=== PATIENT | male | born 1950 | race Caucasian/White ===

== ENCOUNTER 2021-10-14 16:24 | Outpatient (REF) | payer MEDICARE, SELFPAY ==
[2021-10-14 19:36] LABS: ALT 32 U/L (16-63); AST 16 U/L (15-37); Alkaline Phosphatase 58 U/L (46-116); Anion Gap 9.3 mmol/L (3-11); BUN 13 mg/dL (7-18); Bilirubin, Total 0.4 mg/dL (0.2-1.0); CO2 28.7 mmol/L (21.0-32.0); CREATININE 0.9 mg/dL (0.70-1.30); Calcium 8.8 mg/dL (8.5-10.1); Calculated LDL 127 mg/dL (<100); Chloride 101 mmol/L (98-107); Cholesterol 188 mg/dL (<200); Glucose 91 mg/dL (74-106); HDL Cholesterol 43 mg/dL (40-60); Potassium 4.2 mmol/L (3.5-5.1); Sodium 139 mmol/L (136-145); Total Protein 7.4 g/dL (6.4-8.2); Triglyceride 91 mg/dL (<150)
[2021-10-14 20:29] LABS: Hemoglobin A1C 5.2 % (<5.7)
== END 2021-10-14 16:25 | disposition home or self-care (01) ==
LOC: NCHCN 16:24
PROVIDERS: Visit Provider Nurse Practitioner Family
DX: E78.2 Mixed hyperlipidemia (principal)
CPT/HCPCS: 80053; 80061; 83036

== ENCOUNTER 2022-11-07 09:26 | Outpatient (REF) | payer MEDICARE, SELFPAY ==
--- OUTSIDE RECORDS SUMMARY | 2022-11-07 09:32 | XMS_ITS | Continuity of Care Document ---
Author Name Unknown Organization [facility] Address [address] [place] [address] Encounter LTTL_[place] FIN NBR [id number] Date(s): 09/06/22 - 09/06/22 [facility] [address] [place], [place] [address] Encounter Diagnosis Nuclear age-related cataract, right eye(Discharge Diagnosis) - 09/05/22 Cortical age-related cataract, right eye(Discharge Diagnosis) - 09/05/22 Discharge Disposition: Home f/u External Provider Attending Physician: Ramses Dickinson MD Admitting Physician: Ramses Dickinson MD Referring Physician: Ramses Dickinson MD Allergies, Adverse Reactions, Alerts Substance Reaction Severity Status penicillin Vomiting Mild Active Functional Status 09/06/22 Recent Travel History No recent travel Other exposure to Infectious Disease Non e Medications glucosamine/chondroitin/methylsulfonylmethane 1 tab, Oral, Daily, 0 Refill(s) Start Date: 08/18/22 Status: Ordered prednisolone/moxifloxacin/nepafenac 1%-0.5%-0.1% ophthalmic suspension 1 drops, OPHTH, As Directed, 0 Refill(s) Start Date: 09/06/22 Status: Ordered Vitamin C 1 tab, Oral, Daily, 0 Refill(s) Start Date: 08/18/22 Status: Ordered Vitamin D3 1 tab, Oral, Daily, 0 Refill(s) Start Date: 08/18/22 Status: Ordered Problem List Condition Confirmation Course Effective Dates Status H ealt Status Informant Asthma Confirmed Active HLD - Hyperlipidemia Confirmed Active HTN - Hypertension Confirmed Active Lumbar spinal stenosis Confirmed Active Myelopathy due to spinal cord compression Confirmed Active Procedures Procedure Date Related Diagnosis Body Site Status Cataract Extraction with IOL (Right) 1 09/06/22 Completed Cataract Extraction with IOL (Left) 2 08/23/22 Completed Knee joint operation Comp leted Operation on neck Complet ed Operation on shoulder joint Completed Spinal operation 3 Comple ria 1auto-populated from documented surgical case 2auto-populated from documented surgical case 3back surgery x 3 Vital Signs Most recent to oldest [Reference Range]: 1 2 3 Temperature Temporal Artery [36-38 Deg C] 37.1 Deg C (09/06/22 8:54 AM) 37.0 Deg C (09/06/22 7:30 AM) Peripheral Pulse Rate [60-100 bpm] 75 bpm (09/06/22 9:07 AM) 84 bpm (09/06/22 9:00 AM) 79 bpm (09/06/22 8:57 AM) Respiratory Rate [12-24 br/min] 16 br/min (09/06/22 7:30 AM) Blood Pressure [90-140/60-90 mmHg] 123/69mmHg (09/06/22 9:07 AM) 124/78mmHg (09/06/22 9:00 AM) 129/76mmHg (09/06/22 8:57 AM) Mean Arterial Pressure, Cuff [65-140 mmHg] 87 mmHg (09/06/22 9:07 AM) 93 mmHg (09/06/22 9:00 AM) 94 mmHg (09/06/22 8:57 AM) Mean Arterial Pressure Cuff 84 mmHg (09/06/22 9:07 AM) 92 mmHg (09/06/22 9:00 AM) 91 mmHg (09/06/22 8:57 AM) Weight 90.000 kg (09/04/22 2:10 PM) Weight Dosing 90.000 kg (09/04/22 2:10 PM) Height 168.000 cm (09/04/22 2:10 PM) Height/Length Dosing 168.000 cm (09/04/22 2:10 PM) Social History Social History Type Response Tobacco Never tobacco user T obacco Use:. Sex Implantable Device List Procedure Provider Procedure Date Device Type Site Extracapsular cataract remov al with insertion of intraocular lens prosthesis (1 stage procedure), manual or mechanical technique (eg, irrigation and aspiration or phacoemulsification); without endoscopic cyclophotocoagulation Ramses Dickinson MD 09/06/22 Non Biological Eye R Device Identifier Serial Number Lot or Batch Number Manufacturing Date Expiration Date Distinct Identification Code MRI Safety Implantable Status Assigning Authority Unknown [id number] Unknown Unknown 03/23/25 Unknown Unknown Active Unknown Procedure Provider Procedure Date Device Type Site Extracapsular cataract remov al with insertion of intraocular lens prosthesis (1 stage procedure), manual or mechanical technique (eg, irrigation and aspiration or phacoemulsification); without endoscopic cyclophotocoagulation Ramses Dickinson MD 08/23/22 Non Biological Eye L Device Identifier Serial Number Lot or Batch Number Manufacturing Date Expiration Date Distinct Identification Code MRI Safety Implantable Status Assigning Authority Unknown [id number] Unknown Unknown 03/31/25 Unknown Unknown Active Unknown
--- OUTSIDE RECORDS SUMMARY | 2022-11-07 09:32 | XMS_ITS | Continuity of Care Document ---
Author Name Unknown Organization [facility] Address [address] [place] [address] Encounter LTTL_[place] FIN NBR [id number] Date(s): 08/23/22 - 08/23/22 [facility] [address] [place], [place] [address] Encounter Diagnosis Nuclear age-related cataract, left eye(Discharge Diagnosis) - 08/22/22 Cortical age-related cataract, left eye(Discharge Diagnosis) - 08/22/22 Discharge Disposition: Home or Self Care Attending Physician: Ramses Dickinson MD Admitting Physician: Ramses Dickinson MD Referring Physician: Ramses Dickinson MD Allergies, Adverse Reactions, Alerts Substance Reaction Severity Status penicillin Vomiting Mild Active Functional Status 08/23/22 ADLs Independent Family Member Travel History No recent t ravel Recent Travel History No recent travel Other exposure to Infectious Disease Non e Medications glucosamine/chondroitin/methylsulfonylmethane 1 tab, Oral, Daily, 0 Refill(s) Start Date: 08/18/22 Status: Ordered Vitamin C 1 tab, Oral, [...] Body Site Status Cataract Extraction with IOL (Left) 1 08/23/22 Completed Knee joint operation Comp leted Operation on neck Complet ed Operation on shoulder joint Completed Spinal operation 2 Comple ria 1auto-populated from documented surgical case 2back surgery x 3 Vital Signs Most recent to oldest [Reference Range]: 1 2 Temperature Temporal Artery [36-38 Deg C ] 37.0 Deg C (08/23/22 7:41 AM) Peripheral Pulse Rate [60-100 bpm] 77 bp m (08/23/22 10:15 AM) 75 bpm (08/23/22 9:59 AM) Heart Rate Monitored [60-100 bpm] 84 bpm (08/23/22 7:41 AM) Respiratory Rate [12-24 br/min] 18 br/mi n (08/23/22 7:41 AM) Blood Pressure [90-140/60-90 mmHg] 123/8 8mmHg (08/23/22 9:59 AM) 153/92mmHg *HI* (08/23/22 7:41 AM) Mean Arterial Pressure, Cuff [65-140 mmH g] 100 mmHg (08/23/22 9:59 AM) Mean Arterial Pressure Cuff 98 mmHg (08/23/22 9:59 AM) Weight 89.360 kg (08/18/22 11:07 AM) Weight Dosing 89.360 kg (08/18/22 11:07 AM) Height 167.640 cm (08/18/22 11:07 AM) Height/Length Dosing 167.640 cm (08/18/22 11:07 AM) Social History Social History Type Response Tobacco [...] MRI Safety Implantable Status Assigning Authority Unknown [id number] Unknown Unknown 03/31/25 Unknown Unknown Active Unknown History and physical note * Event Display: History and Physical
[2022-11-07 20:08] LABS: ALT 23 U/L (16-63); AST 16 U/L (15-37); Albumin 4.1 g/dL (3.4-5.0); Alkaline Phosphatase 59 U/L (46-116); Anion Gap 7.3 mmol/L (3-11); BUN 13 mg/dL (7-18); Bilirubin, Total 0.4 mg/dL (0.2-1.0); CO2 27.7 mmol/L (21.0-32.0); CREATININE 0.9 mg/dL (0.70-1.30); Calcium 9.2 mg/dL (8.5-10.1); Calculated LDL 216 mg/dL (<100); Chloride 103 mmol/L (98-107); Cholesterol 283 mg/dL (<200); Estimated GFR 90.18 (mL/min/1.73m2); Glucose 92 mg/dL (74-106); HDL Cholesterol 45 mg/dL (40-60); Potassium 3.9 mmol/L (3.5-5.1); Sodium 138 mmol/L (136-145); Total Protein 7.9 g/dL (6.4-8.2); Triglyceride 111 mg/dL (<150)
== END 2022-11-07 09:27 | disposition home or self-care (01) ==
LOC: NCHCN 09:26
PROVIDERS: PCP Nurse Practitioner Family; Visit Provider Nurse Practitioner Family
DX: E78.2 Mixed hyperlipidemia (principal)
CPT/HCPCS: 80053; 80061

== ENCOUNTER 2023-05-09 20:12 | Outpatient (REF) | payer MEDICARE, SELFPAY ==
[2023-05-09 22:24] LABS: ALT 34 U/L (16-63); AST 22 U/L (15-37); Albumin 4.1 g/dL (3.4-5.0); Alkaline Phosphatase 60 U/L (46-116); Anion Gap 8.4 mmol/L (3-11); BUN 14 mg/dL (7-18); Bilirubin, Total 0.5 mg/dL (0.2-1.0); CO2 25.6 mmol/L (21.0-32.0); Calcium 9.5 mg/dL (8.5-10.1); Calculated LDL 133 mg/dL (<100); Chloride 101 mmol/L (98-107); Cholesterol 198 mg/dL (<200); Estimated GFR 78.98 (mL/min/1.73m2); Glucose 97 mg/dL (74-106); HDL Cholesterol 42 mg/dL (40-60); Sodium 135 mmol/L (136-145); Triglyceride 115 mg/dL (<150)
== END 2023-05-09 20:13 | disposition home or self-care (01) ==
LOC: NCHCN 20:12
PROVIDERS: PCP Nurse Practitioner Family; Visit Provider Nurse Practitioner Family
DX: E78.2 Mixed hyperlipidemia (principal)
CPT/HCPCS: 80053; 80061

== ENCOUNTER → 2023-10-03 01:20 | Outpatient (CLI) | payer MEDICARE, BC, SELFPAY ==
--- NOTE | 2023-10-03 | DI.RAD_ITS ---
Exam(s) XR KNEE RT 3V AP,LAT,REJI EXAM: XR KNEE RT 3V AP,LAT,REJI CLINICAL HISTORY: RT KNEE PAIN, M25.561. TECHNIQUE: 2D digital imaging was performed. Three images were obtained. AP, lateral and PA tunnel views were obtained. COMPARISON: CR Knee R from 07/22/2019 FINDINGS: BONES: There are stable post operative changes of a right total knee replacement present. No fractur e or dislocation. There are enthesophytes at the anterior patella. JOINTS: The orthopedic hardware is in good position. There is mild lucency seen around the anterior aspect of the tibial component on the lateral view. This was not present on the prior examination. There is a small joint effusion. SOFT TISSUE: Normal. IMPRESSION: 1. Status post right total knee replacement. New lucency seen around the anterior aspect of the tibi al component of the prosthesis. 2. Small joint effusion. DATA REPOSITORY: RADIATION DOSE DELIVERED:
== END ==
PROVIDERS: PCP Nurse Practitioner Family; Visit Provider Nurse Practitioner Family
DX: Z47.1 Aftercare following joint replacement surgery (principal); Z96.651 Presence of right artificial knee joint
CPT/HCPCS: 73562

== ENCOUNTER 2023-11-19 15:25 | Outpatient (CLI) | payer MEDICARE, BC, SELFPAY ==
--- NOTE | 2023-11-19 14:00 | DI.RAD_ITS ---
Exam(s) XR KNEE LT 4V AP,LAT,REJI,PAT EXAM: XR KNEE LT 4V AP,LAT,REJI,PAT CLINICAL HISTORY: f/u L kknee. TECHNIQUE: 2D digital imaging was performed of the left knee. Four images were obtained. Merchant, AP, lateral and PA tunnel views were obtained. COMPARISON: No priors for comparison. FINDINGS: BONES: No acute fracture is present. No bony destructive lesion is seen. There is an enthesophyte at the superior patella. JOINTS: There is moderate narrowing of the medial femoral tibial joint. Calcification is seen in the medial femoral tibial joint consistent with chondrocalcinosis. There osteophytes in all 3 joint com partments. There is a small joint effusion. No loose body. SOFT TISSUE: Normal. IMPRESSION: Moderate arthrosis of the left knee. Small joint effusion. DATA REPOSITORY: RADIATION DOSE DELIVERED:
== END 2023-11-19 15:26 | disposition home or self-care (01) ==
LOC: DIORS 15:25
PROVIDERS: PCP Nurse Practitioner Family; Referring Provider Nurse Practitioner Family; Visit Provider Student in an Organized Health Care Education/Training Program
DX: M17.12 Unilateral primary osteoarthritis, left knee (principal); Z96.651 Presence of right artificial knee joint; T84.84XA Pain due to internal orthopedic prosthetic devices, implants and grafts, initial encounter; T84.032A Mechanical loosening of internal right knee prosthetic joint, initial encounter
CPT/HCPCS: 99204; 73564

== ENCOUNTER → 2023-12-19 03:48 | Outpatient (CLI) | payer MEDICARE, BC, SELFPAY ==
--- NOTE | 2023-12-19 07:30 | DI.NM_ITS ---
Exam(s) NM BONE SCAN 3 PHASE EXAM: NM BONE SCAN 3 PHASE CLINICAL HISTORY: PAIN, ?LOOSENING prosthesis,t84.032a,. TECHNIQUE: Injected Dose: 26.8 mCi Tc-99m MDP COMPARISON: CR XR KNEE RT 3V AP,LAT,REJI from 10/03/2023 CR XR KNEE LT 4V AP,LAT,REJI,PAT from 11/19/2023 FINDINGS: Perfusion: Mild increased uptake lateral to both left and right aspects of the distal femoral component of the r ight knee prosthesis. Blood Pool: There is focal uptake seen in the medial compartment of the left knee consistent with degenerative ch eric. This persists on delayed images. There is also evident on plain films. There is some increased uptake seen subjacent to both sides of the tibial component of the prosthesis . There is no prominent abnormal uptake related to the femoral component. Delayed: There is persistent increased uptake in the medial compartment of the left knee consistent with degen erative change. There is some mild increased uptake seen subjacent to the tibial component, more so laterally than me dially. Multilevel uptake in lumbar spine probably degenerative. There is no abnormal uptake in the pelvis a nd hips nor in the femurs. Increased uptake seen in the great toe metatarsophalangeal joint of the r ight foot. Also some uptake in the midfoot. There is increased focal uptake seen in the lower left medial calf most probably related to the tibia at this level. This is of questionable significance. No abnormal uptake in the hips and pelvis nor in the sacrum. No abnormal uptake in the skull. IMPRESSION: 1. Uptake in the medial compartment of the left knee consistent with significant osteoarthritic degen erative changes. 2. Some uptake is seen subjacent to the tibial component of the right knee prosthesis. This may rep resent some loosening but correlation from time of surgery recommended. 3. Other foci of uptake as described above which most probably degenerative. DATA REPOSITORY:
--- NOTE | 2023-12-19 07:30 | DI.CT_ITS ---
Exam(s) CT LOWER EXTREMITY RT WO EXAM: CT LOWER EXTREMITY RT WO CLINICAL HISTORY: PAIN, ?LOOSENING of prosthesis,painful total knee replacement,T84.84xa,. TECHNIQUE: Imaging Protocol: Axial computed tomography images with coronal and sagittal reformatted images were created and reviewed. CONTRAST MATERIAL: Intravenous: Omnipaque 350 Contrast volume:structured data in ml Contrast route:IV - COMPARISON: CR XR KNEE RT 3V AP,LAT,REJI from 10/03/2023 CR XR KNEE LT 4V AP,LAT,REJI,PAT from 11/19/2023 NM NM BONE SCAN 3 PHASE from 12/19/2023 FINDINGS: Bones: There is no evidence of fracture. The alignment of the total knee prosthesis appears normal. There is thin lucency seen adjacent to the the tibial component of the prosthesis, greater anteriorl y, consistent with loosening. No abnormal lucencies visible at the femoral or patellar components of the prosthesis however there is significant artifact. No cellulitic or osteomyelitic changes are identified. No lytic or sclerotic lesions are identified. A small joint effusion is seen. Soft Tissues: Normal. IMPRESSION: Findings suspicious for loosening of the the tibial component. RADIATION DOSE DELIVERED: 438.55mGy.cm Total DLP DATA REPOSITORY: All CT scans at this facility are submitted to the National Radiology Data Registry (NRDR) Dose Index Registry (DIR) with the [employer] (ACR). RADIATION OPTIMIZATION: All CT scans at this facility use at least one of these dose optimization te chniques: automated exposure control; mA and/or kV adjustment per patient size (includes targeted exa ms where dose is matched to clinical indication); or iterative reconstruction.
== END ==
PROVIDERS: PCP Nurse Practitioner Family; Visit Provider Student in an Organized Health Care Education/Training Program
DX: T84.032A Mechanical loosening of internal right knee prosthetic joint, initial encounter (principal); T84.84XA Pain due to internal orthopedic prosthetic devices, implants and grafts, initial encounter; Z96.651 Presence of right artificial knee joint
CPT/HCPCS: 73700; 78315

== ENCOUNTER 2023-12-31 04:45 | Outpatient (CLI) | payer MEDICARE, BC, SELFPAY ==
[2023-12-31 14:25] LABS: HCT 43.7 % (40.0-50.0); HGB 14.9 g/dL (13.5-17.5); MCH 31.5 pg (27.0-33.0); MCHC 34.1 % (32.0-36.0); MCV 92 fL (80-95); MPV 9.1 fL (8.0-11.0); Platelet Count 231 10^3/uL (130-400); RBC 4.73 10^6/uL (4.36-5.78); RDW 12.5 % (11.8-14.1); RDW-SD 42.7 fL; WBC 8.12 10^3/uL (4.4-10.8)
[2023-12-31 15:05] LABS: ESR 10 mm/hr (0-20)
[2023-12-31 15:36] LABS: Anion Gap 9.3 mmol/L (3-11); BUN 19 mg/dL (7-18); CO2 28.7 mmol/L (21.0-32.0); Calcium 9.3 mg/dL (8.5-10.1); Chloride 104 mmol/L (98-107); Estimated GFR 78.98 (mL/min/1.73m2); Glucose 88 mg/dL (74-106); Potassium 4.3 mmol/L (3.5-5.1); Sodium 142 mmol/L (136-145)
[2023-12-31 15:42] LABS: C-Reactive Protein < 0.50 mg/dL (<or=0.5)
== END 2023-12-31 04:46 | disposition home or self-care (01) ==
LOC: LBO 04:45
PROVIDERS: PCP Nurse Practitioner Family; Visit Provider Student in an Organized Health Care Education/Training Program
DX: T84.032A Mechanical loosening of internal right knee prosthetic joint, initial encounter (principal); T84.84XA Pain due to internal orthopedic prosthetic devices, implants and grafts, initial encounter; Z96.651 Presence of right artificial knee joint; Z01.818 Encounter for other preprocedural examination
CPT/HCPCS: 36415; 80048; 85027; 85652; 86140

== ENCOUNTER 2024-01-08 08:10 | Inpatient (IN) | payer MEDICARE, BC, SELFPAY ==
[2024-01-08] VITALS (17 sets, daily range): BP systolic 74–151; BP diastolic 46–88; PULSE 69–80; RESP 14–19; TEMP 36.6–37.3; O2SAT 94–99; BMI 29.8
[2024-01-08] MEDS: Gabapentin 300 MG CAP PO ×2 (09:06→20:56)
[2024-01-08] MEDS: Celecoxib 200 MG CAP 400 MG PO (09:06)
[2024-01-08] MEDS: Acetaminophen 500 MG TAB 1000 MG PO ×3 (09:07→22:36)
[2024-01-08] MEDS: Lactated Ringers 1,000 ML 80 ML IV ×2 (09:09→16:02)
--- NOTE | 2024-01-08 10:19 | W.ANESPRE ---
General Info Date of Service Date Performed: 01/08/24 Height: 5 ft 7 in Weight: 86.4 kg Body Mass Index (BMI): 29.8 Surgical Procedure: Operation Date: 01/08/24 10:55 Proposed Procedure Side Surgeon p Knee Total Revision, ATTUNE Right Tre Dodge MD s Knee Injection Left Tre Dodge MD Actual Procedure Side Surgeon p Knee Total Revision, ATTUNE Right Tre Dodge MD s Knee Injection Left Tre Dodge MD Meds Allergies and Home Medications Allergies Allergy/AdvReac Type Severity Reaction Status Date / Time Penicillins AdvReac vomiting Verified 01/08/24 08:40 birch trees Allergy rash Uncoded 01/08/24 08:40 cats Allergy rash Uncoded 01/08/24 08:40 Home Medication Medication Instructions Recorded acetaminophen 500 mg capsule 500 mg PO Q6H PRN 10/03/23 ascorbate calcium (vitamin C) 500 1 g PO DAILY 10/03/23 mg tablet cholecalciferol (vitamin D3) 25 25 mcg PO DAILY 10/03/23 mcg (1,000 unit) capsule glucosamine 375 by-[id number]-[id number] 1 tab PO DAILY 10/03/23 no1 500 mg-C 15 mg-maxi 0.5 mg tablet Current Visit Medications: Current Medications Generic Name Dose Route Start Last Admin Trade Name Aries PRN Reason Stop Dose Admin Acetaminophen 1,000 mg 01/08/24 06:00 01/08/24 09:07 Acetaminophen 500 Mg Tab PO 01/08/24 23:59 1,000 mg PREOP JENS Administration Celecoxib 400 mg 01/08/24 06:00 01/08/24 09:06 Celecoxib 200 Mg Cap PO 01/08/24 23:59 400 mg PREOP JENS Administration Gabapentin 300 mg 01/08/24 06:00 01/08/24 09:06 Gabapentin 300 Mg Cap PO 01/08/24 23:59 300 mg PREOP JENS Administration Ringer's Solution 1,000 mls @ 80 mls/hr 01/08/24 06:00 01/08/24 09:09 IV 01/08/24 23:59 80 mls/hr INFUSION JENS Administration Cefazolin Sodium/Dextrose 2 gm in 50 mls @ 100 mls/hr 01/08/24 06:00 Ancef Duplex IVPB 01/08/24 23:59 PREOP JENS Tranexamic Acid/Sodium Chloride 1,000 mg in 100 mls @ 600 mls/hr 01/08/24 06:00 IVPB 01/08/24 23:59 PREOP JENS IV Miscellaneous Supplies 1 each 01/08/24 06:00 Iv Access IV 01/08/24 23:59 DIRECTED JENS Sodium Chloride 0 ml 01/08/24 06:00 Normal Saline Flush 10 Ml Syr IV 01/08/24 23:59 PRN PRN Sodium Chloride 0 ml 01/08/24 06:00 Normal Saline 10 Ml Vial IJ 01/08/24 23:59 DIRECTED PRN Sterile Water 0 ml 01/08/24 06:00 Water,Injection,Sterile 10 Ml Vial IJ 01/08/24 23:59 DIRECTED PRN PFSH Active Problems Active Problems: Problem Status Onset Code 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 Arthritis of left knee M17.12 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 Mild intermittent asthma J45.20 Medical History Medical History History of ankle fracture Lumbar spinal stenosis Allergic rhinitis Spinal cord compression Obesity Mixed hyperlipidemia Surgical History Surgical History History of bilateral cataract extraction History of total right knee replacement 2016 Tobacco Smoking/Tobacco Use Status: Never Alcohol Alcohol Intake: current Alcohol intake frequency: a few times a month Substance Use Substance use: Never Substance use type: does not use Vital Signs and Lab Results Vital Signs Most Recent Vital Signs in EMR: Most Recent Vital Signs Temp Pulse Resp BP Pulse Ox 36.6 C 73 16 151/85 H 99 01/08/24 08:31 01/08/24 08:31 01/08/24 08:31 01/08/24 08:54 01/08/24 08:31 Lab Results Blood Type / Crossmatch: No Data to Display Complete Blood Count: White Blood Count 8.12 10^3/uL (4.4-10.8) 12/31/23 14:10 Red Blood Count 4.73 10^6/uL (4.36-5.78) 12/31/23 14:10 Hemoglobin 14.9 g/dL (13.5-17.5) 12/31/23 14:10 Hematocrit 43.7 % (40.0-50.0) 12/31/23 14:10 Platelet Count 231 10^3/uL (130-400) 12/31/23 14:10 Complete Metabolic Panel: Sodium 142 mmol/L (136-145) 12/31/23 14:10 Potassium 4.3 mmol/L (3.5-5.1) 12/31/23 14:10 Chloride 104 mmol/L (98-107) 12/31/23 14:10 Carbon Dioxide 28.7 mmol/L (21.0-32.0) 12/31/23 14:10 BUN 19 mg/dL (7-18) H 12/31/23 14:10 Creatinine 1.0 mg/dL (0.70-1.30) 12/31/23 14:10 Est GFR (CKD-EPI 2020) 78.98 (mL/min/1.73m2) 12/31/23 14:10 Calcium 9.3 mg/dL (8.5-10.1) 12/31/23 14:10 Glucose 88 mg/dL (74-106) 12/31/23 14:10 C-Reactive Protein < 0.50 mg/dL (<or=0.5) 12/31/23 14:10 Liver Function Panel: No Data to Display Coagulation Panel: No Data to Display Cardiac Panel: No Data to Display Arterial Blood Gas: No Data to Display Venous Blood Gas: No Data to Display Pancreas Panel: No Data to Display Thyroid Panel: No Data to Display Infectious Disease: No Data to Display Blood Cultures: No Data to Display Toxicology Panel: No Data to Display Anesthesia Assessment and Plan Anesthesia History Personal History: No History of Anesthesia Complications Family History: No Family History of Anesthesia Complications Exercise Tolerance Exercise Tolerance: Metabolic Equivalents>4 Pertinent Negatives Pertinent Negatives: No Symptoms of GERD, No Major Cardiovascular Symptoms or Complaints, No Major Pulmonary Symptoms or Complaints and No History of CVA/TIA Cardiac & Pulmonary Exam Cardiac Exam: Normal S1/S2 Heart Sounds Pulmonary Exam: Clear Bilateral Breath Sounds Implantable Cardiac Device Does patient have a Pacemaker or an ICD?: No Airway Exam Known Difficult Airway: No Mallampati Class: 3 Mouth Opening: Normal (> 3cm) Thyromental Distance: Greater than 3 cm Neck Range of Motion: Limited ROM and History of Cervical Fusion Neck Circumference: Normal Teeth Condition: Normal Dentition and Generalized Poor Dentition ASA Classification ASA Score: ASA 3 Emergency Case?: No NPO Status NPO Status: NPO Clears >2 hours, Solids >8 hours Anesthesia Plan Resuscitation Status: Full Code Anesthesia Technique: General Anesthesia Airway Planned: Endotracheal Tube Pain Management: Surgeon and patient request nerve block Monitors Used: Standard Monitors
--- NOTE | 2024-01-08 10:23 | W.ANESNERVE ---
Nerve Block Single Injection Procedure Date and Time Date Performed: 01/08/24 Procedure Start: 10:11 Location Where Procedure Performed Procedure Location: Day Surgery Unit Reason Performed: Postoperative Analgesia Requesting Provider: Tre Dodge Timeout Performed Timeout Performed: Yes Monitoring Used ECG, Blood Pressure and SpO2 Sterility Sterility: Hand Hygiene, Surgical Cap, Surgical Mask and Chlorhexidine Sedation Given During Procedure Sedation Given (Indicate Dose Given): No Sedation given Patient Mental Status Patient Mental Status: Awake Nerve Block 1st Nerve Block: Laterality: Right Block Type: Adductor Canal Ultrasound Image Saved?: Yes Needle / Catheter Used: 100mm SonoPlex II Local Anesthetic Bolus (Indicate Dose Given): Lidocaine used for local infiltration of skin, Injected in 3-5ml increments after negative blood aspiration and Bupivacaine 0.25% Dose:: 15 ml Additives (Indicate Dose Given): Normal Saline Ultrasound: Sterile probe cover and gel used Nerve Stimulator: Not Used Paresthesia: None Procedure Tolerated: No Complications and Patient tolerated well Procedure Outcome: Successful Performed By: Lester Cary
[2024-01-08] MEDS: ceFAZolin 2 GM/50 ML BAG IVPB (10:34)
[2024-01-08] MEDS: methylPREDNISolone ACETATE 80 MG/ML VIAL (10:35)
[2024-01-08] MEDS: Bupivacaine 0.5% Pres-Free 30 ML VIAL (10:35)
[2024-01-08] MEDS: TRANEXAMIC ACID/SOD. CHL. 1,000 MG/100 ML BAG 600 MG IVPB (10:44)
--- NOTE | 2024-01-08 14:15 | DI.RAD_ITS ---
Exam(s) XR KNEE RT 2V AP,LAT EXAM: XR KNEE RT 2V AP,LAT INDICATION: s/p revision R TKA. COMPARISON: CR XR KNEE RT 3V AP,LAT,REJI from 10/03/2023 TECHNIQUE: 2D digital imaging was performed. Two views. FINDINGS: The previously noted total knee prosthesis has been revised. The components of the new prosthesis s how satisfactory alignment. There is residual postsurgical air in the soft tissues. DATA REPOSITORY: RADIATION DOSE DELIVERED:
--- NOTE | 2024-01-08 14:22 | ROE_ITS ---
Date of service: 01/08/24 Time of Service: 11:00 Operative Note Operative Note DATE OF PROCEDURE: 01/08/24 PRE-OP DIAGNOSIS: Painful Right Knee Replacement Prosthetic Knee Instability POST-OP DIAGNOSIS: same PROCEDURE: Revision Right Knee Replacement SURGEON: Tre Dodge WOMEN[employer] STUDIES LECTURER: Darrin Fuentes ANESTHESIA TYPE: Spinal Refer to Anesthesia Record ESTIMATED BLOOD LOSS: 200 PATHOLOGY: none sent COMPLICATIONS: None Patient was transported to: PACU Patient's condition: stable Implants: TIBIA: 1. Depuy Attune Revision Rotating Platform Tibial Tray, Size 7 2. Depuy Attune Tibial Sleeve, Fully Coated, 37mm 3. Depuy Attune Tibial Cementless Stem, [id number] FEMUR: 1. Depuy Attune Revision Femoral Component, Size 7 2. Depuy Attune Femoral Sleeve, Fully Coated, 45mm 3. Depuy Attune Cementless Stem, [id number] PATELLA: Depuy Attune 38mm Patella Button Indications: I have seen Sukhwinder in clinic for a painful right knee replacement. This performed in [address] Caballero at [facility]. He reports having pain at least starting in the first year. Increasing stiffness. He has had multiple procedures and injections and rounds of physical therapy but continues to struggle with pain, instability and stiffness. Examination showed concern for instability both in extension and flexion although worse in flexion. His pain was concerning and infection was ruled out. Bone scan showed increased activity suggestive of prosthetic loosening. Therefore, I recommended proceeding with revision knee replacement. I discussed the technical details of a revision knee replacement. I explained the risks of the procedure to include, but not limited to, bleeding, infection, pain, stiffness, fracture, damage to nerves and vessels, damage to muscles and tendons, loosening, need for repeat procedure, blood clot and cardiopulmonary demise. Despite these risks, Sukhwinder elected to proceed. Findings: There is incredibly thick synovium and scar tissue seen within the knee. An aggressive synovectomy was performed. The patella was grossly loose. The tibia was largely on bonded from the cement although was stuck in the shaft. There was some bony erosion under the distal aspect of the femoral component. All the bones removed along with cement and revision knee arthroplasty was performed including the femur, tibia, and patella. Procedure Description: Sukhwinder was greeted in the preoperative holding area where the correct side was identified and marked. The consent was reviewed with the patient and signed. The history and physical was updated. All questions were answered. Preoperative medications were administered: Acetaminophen 1000mg, Celebrex 400mg, and Gabapentin 300mg. An adductor canal block was then administered by the anesthesia team in the DSU. Sukhwinder was taken back to the operating room. A general anesthetic was administered. The patient was placed into the supine position on the operating room table. Posts were placed for positioning during the procedure. All bony prominences were well padded. Prophylactic antibiotics in the form of Cefazolin were administered. 1g of Tranxemic Acid was given intravenously within 30 minutes of incision. The right leg was then prepped with Chloraprep and draped in a standard fashion with impervious stockinette. A second prep with Chlor aprep was performed prior to application of Iodine impregnated skin protection. A timeout to confirm correct identity, side and site, procedure, allergies, anesthesia, and medical concerns was performed. With the knee in some flexion, the previous incision was utilized. This was a slightly medial based incision, more than I would appreciate but was utilized nonetheless. Full thickness skin flaps were raised once the extensor mechanism was encountered. These were raised medially and laterally. Any bleeding was controlled with electrocautery. There is significant adhesion between the subc utaneous tissues and the extensor mechanism. These tissue planes were elevated off the extensor mechanism for full visualization of the vastus medialis, quadriceps tendon, and medial retinaculum. Once the extensor mechanism was fully exposed, a medial parapatellar arthrotomy was performed in a flexed position. All bleeding from the arthrotomy and the geniculate arteries was coagulated. There was significant density of scar tissue and synovium within the knee itself. No other concerning features or signs. Utilizing 2 Allis and 2 Maico clamps and then performed aggressive synovectomy. There is significant density of scar tissue within the knee. This was excised sharply, laterally, medially, and superiorly. I also used a rongeur to move this from within the gutters. On evaluation of the patella the patella was loose with some undermining of the cement mantle. It was also quite thick. It measured nearly 35 mm in thickness. I then used a freehand technique to remove bone, cement, and polyethylene back to a flat surface. Any remnant cement polyethylene was removed. A size 38 mm patellar button was trialed and fitted appropriately. This was prepared with the lug drill. A subperiosteal medial peel was also then performed evaluate the medial soft tissues from the medial tibia. The interface between the implants and the bone was also cleaned using a rongeur and Bovie electrocautery. The knee was brought up into flexion and the patella was everted. A single nonthreatened pin was placed in the patellar ligament at the superior medial border of the tibial tubercle to prevent any rollback of the insertion. Starting with the femur I utilized flexible osteotomes to go around the periphery of the femoral component. There is minimal resistance at the anterior chamfer and the distal aspect of the femur. There is a small amount of resistance superiorly. There is also minimal posteriorly. Utilizing some light tamps with a bone tamp the femur was able to be removed. There was some bone loss at the box but not much else distally. Excess cement was removed from the femoral surface and within the canal. The periphery of the tibial implant was then further debrided of any attachments and scar tissue. Electrocautery and a rongeur was utilized to fully evaluate the entirety of the tibial plateau. Utilizing flexible osteotomes and a curved shape, I went around the periphery of the tibial component. There is no significant resistance in the osteotome seem to fall into the space within the cement and the tibia with minimal difficulty. Once I got around the entirety of the tibial plateau I then placed a large flat ostium underneath the tibial implant and used a mallet hitting upwards on the implant. This removal process was quite challenging. It seemed that the tibia shifted upwards 1 to 2 mm right away. There did not seem to be any significant attachments of the tibia to the proximal tibia but it still had difficulty being removed. I continue to loosen anything that thought was still attached and utilized the osteotome to extract the tibial component. Eventually, the tibial component was removed. There is no significant attachment of cement to the tibial component. However, there was some attachment of bone and some cement to the keel and the proximal portion of the stem. Utilizing curettes, rongeurs, I remove the cement from within the canal. The cement restrictor was also removed. Curettes were utilized to prepare the canal to make sure there is no remnant cement. Any surface cement was also removed. Reaming was then started on the tibia. This was done by hand. This is sequentially reamed up to size 14 mm reamer which had excellent cortical fixation. A sleeve was placed. This was broached up to size 37 mm where rotational stability was obtained. A tibial tray, size 7, was placed which had excellent coverage of the tibial surface. It was rotated appropriately and locked in position. The keel was punched. This was left in place for later trialing. Attention was turned to the femur. Once again, the femoral canal was reamed from 10 mm to 16 mm. In this position a distal cutting guide was placed and t hen the femur was freshened. There was notable bone loss centrally within the femur. A freshening cut was made. Given the appearance of the femur and concern for the bone loss I planned augmentation of 8 mm. The sleeve was then prepared. This was broached until rotational control was obtained. I made sure to keep the sleeve from going into extension to help balance the flexion gap. At 45 mm we had rotational control. The remainder of the femur was prepared. The anterior cut was made followed by the anterior and posterior chamfer cuts. The posterior femur had bone loss requiring 8 mm augment medially and 12 mm laterally. This was then trialed with a 10 mm polyethylene. This showed excellent balance both medially and laterally in extension and in flexion. The patella was tracking without thumbs. A single batch of high viscosity cement was then mixed on the back table. Once this had mixed with vacuum for 1/2 minutes it was placed on the cut surface patella and clamped in position with patellar component. This was allowed to set up and carefully for 15 minutes. While this was being performed the capsular and periosteal tissues including the subcutaneous tissues were injected with 100 cc of the mixture of ropivacaine, epinephrine, clonidine and ketorolac. The wound was thoroughly irrigated both with saline and it was irrigated with Betadine solution. The final components were opened on the back table. On the back table, the components were assembled based on the trial orientation. Once these were appropriately tightened using torque limiting devices, the christian ent was mixed. 2 batches of medium viscosity cement were prepared with vacuum assistance. After the cement was ready a small amount was placed on to the back side of the tibial component making sure not to get any cement on the sleeve. Cement was placed over the entirety of the posterior femur up to the level of the femoral sleeve. Cement was manual pressurized and impregnated into the cut surface of the tibia not allowing it to go into the canal. The tibial component was then inserted into the cut surface, aligning the orientation of the sleeve, and impacted into position. Excess cement was removed and the component was reimpacted. Again, excess cement was removed and our attention was then turned to the femur. The femoral cut surface was once again dried and cement was manually impacted into the cut surface. The femoral component was lined up and impacted. Excess cement was removed. It was ensured to be down against the cut surface. The trial polyethylene was then inserted and the leg was brought out into full extension for the duration of the cement curing process, approximately 18min. While the cement was hardening, the knee was irrigated with Surgiphor chlorhexadine solution. This was allowed to sit in the knee for 3 minutes and then it was thoroughly irrigated with saline. After the cement had finally cured, approximately 18min, the knee was taken through range of motion. A size 10mm polyethylene component provided the best range of motion and stability with less than 2mm gapping with medial and lateral stress and full extension without significant hyperextension. The ligaments were taut both in extension and flexion. The knee obtain full extension and flex to about 120 to 125 degrees without difficulty, and a large improvement from his preoperative 80 degrees state. The patella was tracking with a no- thumbs technique. The trial poly was removed and once again the knee was checked for any loose, excess, or errant cement. The poly component was then inserted after cleaning and drying the tibial tray. The capsule was then reapproximated with a #2 FiberWire as well as no. 1 Vicryl at multiple locations. The capsule was finally closed with a No. 2 Stratafix, barbed suture. No tourniquet was utilized and there is no significant bleeding. Deep tissues were then reapproximated with 0 Vicryl and 2-0 Vicryl. The skin was closed with a running 3-0 Monocryl in a subcuticular fashion. This was reinforced with skin glue. A Mepilex silver dressing was applied along with a [id number] PRASAD wrap. A CryoCuff was applied. Sukhwinder was transferred to the hospital bed without difficulty an suffering no apparent complication. Sukhwinder has a good prognosis. Physical therapy will start today and without restrictions, weight-bearing as tolerated. Aspirin 81mg BID will be used for DVT prophylaxis. Postoperative x-rays will be obtained in the PACU.
--- NOTE | 2024-01-08 15:39 | W.ANESPOSTOP ---
Postoperative Evaluation Date, Time and Location Date Performed: 01/08/24 Time Performed: 15:39 Patient Location: Med/Surg Vital Signs Most Recent Imported Vital Signs: Most Recent Vital Signs Temp Pulse Resp BP Pulse Ox 36.6 C 73 18 107/61 94 01/08/24 15:05 01/08/24 15:05 01/08/24 15:05 01/08/24 15:05 01/08/24 15:05 Pain Score Most Recent Pain Score: Most Recent Pain Score Pain Level 0 01/08/24 15:05 Assessment Mental Status: Awake (Alert & Oriented to Patient Baseline) Airway and Respiratory Function: Patent airway with normal (patient baseline) respiratory exam Cardiovascular Function: Hemodynamically Stable Hydration Status: Adequately Hydrated Nausea & Vomiting: No Nausea or Vomiting Pain: Pain is tolerable per patient Peripheral Nerve Block: Regional nerve block not resolved at time of post operative discharge
--- NOTE | 2024-01-08 17:22 | PT.INIE ---
PT Notes Physical Therapy Inpatient Initial Evaluation Date: 01/08/2024 Referring Doctor: Tre Dodge MD PT Orders: PT CONSULT: S/P Ortho Surgery Precautions: WBAT on the right LE with AD. 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 PMHX: Medical History (Updated 12/31/23 @ 13:58 by NITZA Kothari) History of ankle fracture Lumbar spinal stenosis Allergic rhinitis Spinal cord compression Obesity Mixed hyperlipidemia Surgical History (Updated 12/31/23 @ 13:10 by Gregoria Jules RN) History of bilateral cataract extraction History of total right knee replacement 2016 Social History/Home Situation: Lives with in a private home with 1-2 steps to enter. Independent with all aspects of ADLs prior to surgery although has had difficulty with mobility performance, stair climbing, and sitting due to painful and loose right knee prosthesis placed about 6 years ago. Equipment Owned/DME: [facility] Subjective: Reported 2?3/10 pain in the right knee at rest and with movement. Amazed at how much he is able to bend and move the knee during this assessment. Denied headache, chest pain, and lightheadedness throughout session. Objective: General Observation: Resting in bed. Juvenal wraps to right LE. Cryocuff to right knee. TEDS to left leg. IV through right UE. Mental Status: Alert and oriented as to person, place, time, and purpose. Able to pay attention, focus, and respond appropriately. Pain: As above Vital Signs: Within normal limits is closely monitored by nursing staff ROM: Right Lower Extremity: Hip flexion WFL. Hip abduction WFL. Knee flexion 0 to 95 degrees. Knee extension 95 degrees to 0.. Ankle dorsiflexion WFL. Ankle plantarflexion WFL. Left Lower Extremity: Hip flexion WFL. Hip abduction WFL. Knee flexion WFL. Ankle dorsiflexion WFL. Ankle plantarflexion WFL. Strength: Right Lower Extremity: Hip flexors 4/5. Hip abductors 4/5. Knee flexors 3-/5. Knee extensors 4-/5. Ankle dorsiflexors 4/5. Ankle plantarflexors 4/5. Left Lower Extremity: Hip flexors 4/5. Hip abductors 4/5. Knee flexors 4-/5. Knee extensors 4-/5. Ankle dorsiflexors 4/5. Ankle plantarflexors 4/5. Sensation: Intact as to pain and light pressure in BLE Bed Mobility/Transfers: Minimal cueing provided for use of B hands as needed for support, movement sequence, AD management, and posture to reduce fall risk and minimize pain report Supine to sit contact-guard assist with HOB at 30 degrees Sit to stand contact-guard assist with FWW Stand to sit standby assist with FWW Bed to toilet seat standby assist with FWW Toilet seat to bedside chair standby assist with FWW Gait: Instructed patient with level surface ambulation covering a distance of 250 feet with step-through heel-toe gait pattern requiring standby assist with IV pole management and wheelchair follow by PT using front-wheeled walker. Minimal verbal cueing provided for correct limb advancement and gait pattern, AD management, and posture to reduce fall risk and minimize pain report. Balance: Static Sitting: Normal Dynamic Sitting: Normal Static Standing: Fair Dynamic Standing: Fair Special Tests: Mobility Limitations Standardized Measure [facility] AM-PAC 6 clicks Basic Mobility Inpatient Short Form: Raw Score: 23 CMS Score: 11% deficit Informed Consent/Education: Patient was instructed in purpose of PT consult and plan of care. Agreeable to proceed with established PT POC to achieve personal goals. Trained patient with correct performance of exercises below to maximize motor control, joint flexibility, soft tissue extensibility of the R knee musculature: Access Code: [email or web address] URL: [email or web address] Date: 01/08/2024 Prepared by: Leslye Sun Exercises - Supine Quad Set - 1 x daily - 7 x weekly - 1 sets - 10 reps - 5 hold - Supine Heel Slide - 1 x daily - 7 x weekly - 1 sets - 10 reps - 5 hold - Supine Ankle Pumps - 1 x daily - 7 x weekly - 1 sets - 10 reps - 5 hold - Small Range Straight Leg Raise - 1 x daily - 7 x weekly - 1 sets - 10 reps - 5 hold - Seated March - 1 x daily - 7 x weekly - 1 sets - 10 reps - 5 hold Assessment: Patient requires use of a front-wheeled walker for mobility ADL performance to maximize independence and reduce fall risk. Patient presents with clinical signs and symptoms consistent with current/admitting diagnoses that have resulted to mobility limitations, gait instability, generalized weakness, and overall ADL decline as demonstrated by the following impairment level findings: 1. Decreased strength to ] major muscle groups 2. Impaired sitting/standing balance 3. Impaired activity tolerance 4. Limitation of joint range of motion in R knee flexion Impairments are contributing to the following functional limitations: 1. Decline in bed mobility skills 2. Decline in transfer skills 3. Difficulty with ambulation without assistive device and physical assistance 4. Increased completion time for mobility ADL performance 5. Increased risk for falls 6. Difficulty with managing steps alone safely Patient is assessed as a 96080 moderate complexity based on the following: History: 73-year-old female with past medical history as indicated above Examination: Demonstrable impairment in strength, balance, and mobility level with underlying impairments and functional limitations as exhibited above as well as deficit score of 11% utilizing the [facility] Mobility Inpatient Short Form Presentation: Evolving Decision Makin moderate complexity Goals: Goals X1 week 1. Supine-Sit independent 2. Sit-Supine independent 3. Sit-Stand independent 4. Stand-Sit independent with FWW 5. Bed-Chair independent with FWW 6. Chair-Bed independent with FWW 7. Independent gait on level surface with use of FWW for at least 300 feet without report of pain nor dyspnea 8. Independent stair negotiation while holding onto B rails for at least 6 steps without report of pain nor dyspnea 9. Independent with home exercise program 10. Good static and dynamic standing balance/tolerance Plan of Care/Treatment Plan: 1-2x/day, 7 days/week x 1 week. Plan of care has been reviewed with the [employer] providing the service under Physical Therapy direction. Initiate Physical Therapy intervention for pain management as needed, strengthening, bed mobility, transfers, gait, stairs, balance training, and use of assistive device. DISCHARGE RECOMMENDATIONS: [] Home with no services [] [] Home with services [specify] [X] Home with outpatient PT. home when medically cleared by orthopedic surgeon. Recommend outpatient PT services in order to optimize functional mobility outcomes and facilitate return to independent community ambulation without an assistive device. [] SNF for continued rehabilitation [] [] [facility] [] [] SNF versus LTC based on ability to participate and progress [] TREATMENT CODE/TIME: 9716 2 x 20 minutes for 1 unit, 9753 0 x 18 minutes for 1 unit (6:27-17:05). Thank you for the opportunity to participate in the care of this patient. Leslye Sun PT, DPT, CLT [facility] [place], [place]
[2024-01-08] MEDS: ceFAZolin 1 GM/50 ML BAG IVPB (18:23)
[2024-01-08] MEDS: Celecoxib 200 MG CAP PO (20:56)
[2024-01-08] MEDS: Aspirin E.C. 81 MG TABEC PO (20:56)
[2024-01-08] MEDS: Tranexamic Acid 650 MG TAB 1300 MG PO (20:57)
[2024-01-08] MEDS: Normal Saline Flush 10 ML SYR IV ×2 (20:57→23:33)
[2024-01-08] MEDS: Lactated Ringers 1,000 ML 1000 ML IV (21:23)
--- NOTE | 2024-01-08 22:04 | NUR.NOTE ---
Nursing Note: Around 2029 this [employer] entered the patients room to give medications. Patient stated he had an episode of furry eyes but reported it passed very quickly. Patient stated he took his glasses off and rubbed his eyes and it began resolving. Patient then walked a loop with this [employer] and stated he was feeling fine. Patient tolerated this well. Vital signs were assessed when we got back to his room and noted hypotension with a manual blood pressure of 78/40's. CC RN Chana notified and advised MD Dar. Patient continues to state he is asymptomatic, however his face appears slightly diaphoretic. Bolus initiated per MD order and BP did come up to 88/50 manually about half way through. Patient states he still feels well and denies pain. Patient is resting comfortably in bed. Will continue to monitor and reassess pt.
[2024-01-09] MEDS: ceFAZolin 1 GM/50 ML BAG IVPB ×2 (02:11→10:09)
[2024-01-09] MEDS: oxyCODONE 5 MG TAB PO ×2 (02:40→06:14)
[2024-01-09] MEDS: Normal Saline Flush 10 ML SYR IV (02:41)
[2024-01-09 02:50] VITALS: BP 90/60; PULSE 77; RESP 16; TEMP 36.9; O2SAT 97
--- NOTE | 2024-01-09 07:16 | DSE_ITS ---
Date of service: 01/09/24 Time of Service: 09:41 DS: Diagnosis Discharge Diagnosis (1) Mechanical loosening of internal right knee prosthetic joint: Status: Acute (2) Arthritis of left knee: Status: Acute Discharge Plan Discharge Details Reason For Visit: Right Prosthetic Knee Loosening Admit Date/Time: 01/08/24 08:10 Admit Provider: Tre Dodge Attending Provider: Tre Dodge [facility]: Patient was admitted to the medical/surgical floor following the procedure. The surgery was tolerated well without any notable medical, surgical, or anesthetic complications. Mobilization began postoperatively. He was voiding spontaneously. Vitals were stable. Physical therapy worked with the patient and was cleared for discharge home. No acute medical issues. Pain was controlled on oral regimen. Home Meds and New Rx's Prescriptions: New celecoxib 200 mg capsule 200 mg PO BID PRN (Reason: pain) Qty: 60 1RF aspirin 81 mg tablet,delayed release (DR/EC) 81 mg PO BID Qty: 60 0RF acetaminophen 500 mg tablet 1,000 mg PO Q8H PRN (Reason: pain) Qty: 90 3RF pantoprazole 40 mg tablet,delayed release (DR/EC) 40 mg PO DAILY Qty: 30 0RF dexamethasone 4 mg tablet 4 mg PO DAILY Qty: 2 0RF Rx Instructions: Starting Post-Operative Day #1 (Day after surgery) gabapentin 300 mg capsule 300 mg PO QHS Qty: 14 0RF oxycodone 5 mg tablet 5 mg PO Q4H PRNQty: 18 0RF Continued [id number] mg tablet 1 tab PO DAILY ascorbate calcium (vitamin C) 500 mg tablet 1 g PO DAILY cholecalciferol (vitamin D3) 25 mcg (1,000 unit) capsule 25 mcg PO DAILY Discontinued acetaminophen 500 mg capsule 500 mg PO Q6H PRN Discharge Instructions Additional Instructions: Total Knee Discharge Instructions Activity: The most important activity is to walk and to work on gentle motion (both flexion and extension). You should try to take short walks a few times a day. It is important that when resting you work on keeping the knee straight. Avoid putting a pillow behind the knee as this will encourage flexion. Work on range of motion exercises as provided by Physical Therapy. - Start outpatient physical therapy within 2 weeks. - You should wear the SAMANTHA hose on both legs for 2 weeks. You may remove these at night. You may also use any compression sock in place of the SAMANTHA hose. - Utilize [employer] to review exercises, see videos on exercises and obtain basic information pertaining to your surgery and your recovery. Dressing: Remove the Juvenal wrap by 2 days after your surgery and put on the SAMANTHA stocking given to you from the hospital. Keep the surgical dressing (underneath the JUVENAL wrap) in place for at least one week. After the first week it may be removed and replaced with light gauze and tape or nothing. The wound and dressing may get wet after 3 days but avoid soaking the dressing or otherwise it will need to be changed. Many people prefer covering the dressing with cling wrap (saran wrap) to minimize it from getting soaked. If it gets wet, just pat dry. If it starts to peel off then it will need to be changed. Medications: - You should take Tylenol and anti-inflammatory Celebrex as your primary pain control medications. If the Celebrex is too expensive or not covered, please call the office for another alternative (Advil/Ibuprofen or Naproxen/Aleve) - You have been prescribed a stronger pain medication Oxycodone for breakthrough pain, take as needed as prescribed. - You have also been prescribed a stomach acid reduction agent Pantoprozole to help reduce stomach acid and reflux. - You have been prescribed Gabapentin to take at night for restlessness and nerve pain. - You will be taking Aspirin 81mg twice a day for DVT prevention unless instructed otherwise. - You have also been prescribed Decadron to take to control post-operative nausea and pain. You will start this tomorrow. - If you have constipation you should take Colace or Miralax (both [id number]). It takes most people 3-4 days to have a bowel movement. Follow-up: 2 weeks If you have any acute concerns or questions, please do not hesitate to contact the office at [phone]. You may contact Dr. Dodge with any questions after hours through the hospital at [phone] or on his cell phone at [phone]. Referrals: Tre Dodge MD [ [facility] STAFF PHYSICIAN] - Equipment/Supplies: Walker Activity:: Activity as Tolerated Remove Dressings/Wound Care:: Do Not Remove Shower/Bathe:: Cover Activity:: Activity as Tolerated Equipment/Supplies:: Walker Diet:: As Tolerated DS: Summary Time Spent with Patient providing and/or coordinating discharge services: Less than 30 minutes Status at Discharge Functional status at discharge: uses cane/walker Overall status at discharge: patient is progressing back to baseline Mental Status: mental status grossly normal Speech and Movement: speech and movement normal Mood: congruent mood Affect: normal affect Quality:SDOH Health Related Social Needs: No Data to Display Exam Narrative Exam Narrative: Sitting up in the chair. No acute distress. Alert and orient x 3. Evaluation of the right knee shows clean dry and intact dressing. Active range of motion from 10 to 100 degrees. Good knee extension strength. Psych Mental Status: mental status grossly normal Speech and Movement: speech and movement normal Mood: congruent mood Affect: normal affect DS: Data Vitals/I&O Vitals and I&O: Vital Signs Temperature 36.9 C 01/09/24 02:50 Temperature Source Tympanic 01/09/24 02:50 Pulse 77 01/09/24 02:50 Pulse Rhythm Regular 01/08/24 23:45 Respiratory Rate 16 01/09/24 02:50 Respiratory Effort Normal, Non-Labored 01/08/24 23:45 Respiratory Depth Normal 01/08/24 23:45 Respiratory Pattern Normal 01/08/24 23:45 Blood Pressure 90/60 L 01/09/24 02:50 Blood Pressure Mean 89 01/08/24 10:10 Blood Pressure Position Sitting 01/08/24 10:10 Pulse Oximetry 97 01/09/24 02:50 Oxygen Delivery Method Room Air 01/09/24 02:50 Oxygen Flow Rate 0 01/09/24 02:50 Pain Level 2 01/09/24 06:46 Comment BLOCK END AT 10:17AM. 01/08/24 10:10 Intake & Output 01/08/24 01/08/24 01/09/24 11:59 23:59 11:59 Intake Total 50 / 3.333 2293.333 / 2343.333 380 / 380 Output Total 200 / 200 300 / 300 Balance 50 / 3.333 2093.333 / 2143.333 80 / 80 Weight 86.4 kg 86.183 kg Intake: IV 50 / 2343.333 2293.333 / 2343.333 80 / 80 Oral 300 / 300 Output: Urine 300 / 300 Stool 0 / 0 Estimated Blood Loss 200 / 200 Other: Urine Color Yellow Yellow Urine Appearance Clear Clear Comment Voided large amount to toilet per patient DENIES PAIN/BURNING/TROUBLE STARTING OR STOPPING STREAM Emesis Description None Voiding Methods Toilet Bedside Commode PFSH All Active Problems Mechanical loosening of internal right knee prosthetic joint (Acute) Arthritis of left knee (Acute) Entropion of left eyelid (Acute) Mild intermittent asthma (Acute) Medical History History of ankle fracture Lumbar spinal stenosis Allergic rhinitis Spinal cord compression Obesity Mixed hyperlipidemia Surgical History History of bilateral cataract extraction History of total right knee replacement 2016 Social History Smoking/Tobacco Use Status: Never Smoking risk assessment performed?: Yes Alcohol Intake: current Alcohol Intake frequency: a few times a month Drug use: Never Substance use type: does not use Housing: house Do you feel safe at home: Yes Do you feel safe in your relationship?: Yes Time Spent with Patient Time Spent with Patient: <45 minutes Time was spent: preparing to see the patient(eg.review tests), ordering medications,tests, procedures, indepentently interpreting results, counseling the patient and care coordination
[2024-01-09] MEDS: Lactated Ringers 500 ML 1000 ML IV (07:53)
[2024-01-09] MEDS: Pantoprazole 40 MG TABCR PO (07:54)
[2024-01-09] MEDS: Aspirin E.C. 81 MG TABEC PO (07:54)
[2024-01-09] MEDS: Acetaminophen 500 MG TAB 1000 MG PO (07:54)
[2024-01-09] MEDS: Celecoxib 200 MG CAP PO (07:55)
[2024-01-09] MEDS: Cholecalciferol (Vitamin D3) 1,000 UNIT TAB 1000 UNITS PO (07:55)
[2024-01-09] MEDS: Dexamethasone 4 MG TAB PO (07:55)
[2024-01-09 08:00] VITALS: BP 89/57; PULSE 66; RESP 16; TEMP 36.9; O2SAT 98
[2024-01-09 08:39] VITALS: BP 102/52
--- NOTE | 2024-01-09 09:36 | PTTR_ITS ---
PT Notes Visit Reasons: Right Prosthetic Knee Loosening Physical Therapy Inpatient Treatment Note Date: 01/09/2024 Precautions: WBAT on the right LE with AD. Subjective: All dressed up and ready to go home. 2-10 in the R knee during walking. Objective: General Observation: Seated on chair. Juvenal wraps to right LE. TEDS to left leg. IV access through right UE. Mental Status: Alert and oriented as to person, place, time, and purpose. Able to pay attention, focus, and respond appropriately. Pain: As above Vital Signs: Within normal limits is closely monitored by nursing staff Bed Mobility/Transfers: Minimal cueing provided for use of B hands as needed for support, movement sequence, AD management, and posture to reduce fall risk and minimize pain report Supine to sit supervision Sit to stand supervision Stand to sit supervision Bed to toilet seat supervision Toilet seat to bedside chair supervision Gait: Instructed patient with level surface ambulation covering a distance of about 600 feet with step-through heel-toe gait pattern requiring standby assist with IV pole management and wheelchair follow by PT using front-wheeled walker. Minimal verbal cueing provided for correct limb advancement and gait pattern, AD management, and posture to reduce fall risk and minimize pain report. Balance: Static Sitting: Normal Dynamic Sitting: Normal Static Standing: Fair Dynamic Standing: Fair MARCIO EX: Reviewed with patient correct performance of exercises below to maximize motor control, joint flexibility, soft tissue extensibility of the R knee musculature: Access Code: [email or web address] URL: [email or web address] Date: 01/08/2024 Prepared by: Leslye Sun Exercises - Supine Quad Set - 1 x daily - 7 x weekly - 1 sets - 10 reps - 5 hold - Supine Heel Slide - 1 x daily - 7 x weekly - 1 sets - 10 reps - 5 hold - Supine Ankle Pumps - 1 x daily - 7 x weekly - 1 sets - 10 reps - 5 hold - Small Range Straight Leg Raise - 1 x daily - 7 x weekly - 1 sets - 10 reps - 5 hold - Seated March - 1 x daily - 7 x weekly - 1 sets - 10 reps - 5 hold Assessment: Supervision only for all mobility ADl performance utilizing FWW. Pain remains well-controlled. will be very good support. Plan of Care/Treatment Plan: D/C to home when medcailly cleared. DISCHARGE RECOMMENDATIONS: [] Home with no services [] [] Home with services [specify] [X] Home with outpatient PT. home when medically cleared by orthopedic surgeon. Recommend outpatient PT services in order to optimize functional mobility outcomes and facilitate return to independent community ambulation without an assistive device. [] SNF for continued rehabilitation [] [] Classification Analyst Care [] [] SNF versus LTC based on ability to participate and progress [] TREATMENT CODE/TIME: 10349 x 16 minutes for 1 unit, 37521 x 10 minutes for 1 unit (9:36-10:02).
--- NOTE | 2024-01-09 10:49 | CHAPLAIN ---
Agapito was up in the chair, dressed, waiting to be discharged. He was very pleasant and easily engaged in conversation telling me that he had his knee redone by Dr. Dodge and he praised Dr. Dodge for how well his knee is doing (after revisions by another doctor who retired) as it had been hurting for a long time. Agapito said Dr. Dodge will do his other knee next. Agapito lives in [place] and is looking forward to getting home and being able to go down the stairs to his basement (before his knee hurt too much) to work on his arrows.
[2024-01-09 11:35] VITALS: BP 120/64; PULSE 76; RESP 18; TEMP 37.1; O2SAT 97
== END 2024-01-09 14:15 | disposition home or self-care (01) | DRG 468 ==
LOC: PDS 10:17 → MS 15:14
PROVIDERS: Admitting Provider Student in an Organized Health Care Education/Training Program; PCP Nurse Practitioner Family; Visit Provider Student in an Organized Health Care Education/Training Program
PROC: 3E0U33Z Introduction of Anti-inflammatory into Joints, Percutaneous Approach (ICD-10-PCS; CPT 27487; principal; 2024-01-08 10:45)
PROC: 3E0U33Z Introduction of Anti-inflammatory into Joints, Percutaneous Approach (ICD-10-PCS; CPT 27487; 2024-01-08 10:45)
DX: T84.032A Mechanical loosening of internal right knee prosthetic joint, initial encounter (principal); E78.2 Mixed hyperlipidemia; E66.9 Obesity, unspecified; M48.061 Spinal stenosis, lumbar region without neurogenic claudication; J30.9 Allergic rhinitis, unspecified; M17.12 Unilateral primary osteoarthritis, left knee
CPT/HCPCS: 27487; 20610; 76942; 97110; 97162; 97530; 73560; C1776; J0665; J0690; J1010; J1100; J2371; J2405; J2704; J3010; J8540

== ENCOUNTER 2024-01-21 15:37 | Outpatient (CLI) | payer MEDICARE, BC, SELFPAY ==
--- NOTE | 2024-01-21 13:45 | DI.RAD_ITS ---
Exam(s) XR KNEE RT 2V AP,LAT EXAM: XR KNEE RT 2V AP,LAT CLINICAL HISTORY: S/P REVISION R TKA. TECHNIQUE: 2D digital imaging was performed. Two images were obtained. AP and lateral views were ob tained. COMPARISON: CR XR KNEE RT 2V AP,LAT from 01/08/2024 FINDINGS: BONES: There are stable post operative changes of a right total knee replacement present. No fractur e or dislocation. Enthesophyte is seen in the anterior patella. JOINTS: The orthopedic hardware is in good position. No evidence of hardware loosening. SOFT TISSUE: Normal. IMPRESSION: Stable right total knee replacement. DATA REPOSITORY: RADIATION DOSE DELIVERED:
== END 2024-01-21 15:38 | disposition home or self-care (01) ==
LOC: DIORS 15:37
PROVIDERS: PCP Nurse Practitioner Family; Referring Provider Nurse Practitioner Family; Visit Provider Student in an Organized Health Care Education/Training Program
DX: Z47.1 Aftercare following joint replacement surgery; Z96.651 Presence of right artificial knee joint
CPT/HCPCS: 73560

== ENCOUNTER 2024-03-31 03:41 | Outpatient (CLI) | payer MEDICARE, BC, SELFPAY ==
[2024-03-31 09:45] LABS: HCT 42.2 % (40.0-50.0); MCH 31.3 pg (27.0-33.0); MCHC 33.2 % (32.0-36.0); MCV 94 fL (80-95); MPV 9.4 fL (8.0-11.0); Platelet Count 249 10^3/uL (130-400); RBC 4.47 10^6/uL (4.36-5.78); RDW 12.6 % (11.8-14.1); RDW-SD 43.8 fL; WBC 6.67 10^3/uL (4.4-10.8)
[2024-03-31 10:06] LABS: Anion Gap 9.7 mmol/L (3-11); BUN 9 mg/dL (7-18); CO2 27.3 mmol/L (21.0-32.0); CREATININE 0.9 mg/dL (0.70-1.30); Calcium 9.3 mg/dL (8.5-10.1); Chloride 102 mmol/L (98-107); Estimated GFR 89.07 (mL/min/1.73m2); Glucose 101 mg/dL (74-106); Sodium 139 mmol/L (136-145)
== END 2024-03-31 03:42 | disposition home or self-care (01) ==
LOC: LBO 03:41
PROVIDERS: PCP Nurse Practitioner Family; Visit Provider Student in an Organized Health Care Education/Training Program
DX: M17.12 Unilateral primary osteoarthritis, left knee (principal); Z01.818 Encounter for other preprocedural examination
CPT/HCPCS: 36415; 80048; 85027

== ENCOUNTER 2024-04-16 07:23 | Day surgery (SDC) | payer MEDICARE, BC, SELFPAY ==
--- NOTE | 2024-04-15 14:37 | W.ANESPRE ---
General Info Date of Service Date Performed: 04/16/24 Height: 5 ft 6 in Weight: 78.925 kg Body Mass Index (BMI): 28.0 Surgical Procedure: Operation Date: 04/16/24 09:55 Proposed Procedure Side Surgeon p Knee Total Arthroplasty Left Tre Dodge MD Meds Allergies and Home Medications Allergies Allergy/AdvReac Type Severity Reaction Status Date / Time Penicillins AdvReac vomiting Verified 04/16/24 07:36 birch trees Allergy rash Uncoded 04/16/24 07:36 cats Allergy rash Uncoded 04/16/24 07:36 Home Medication ?Medication ?Instructions ?Recorded ascorbate calcium (vitamin C) 500 1 g PO DAILY 10/03/23 mg tablet acetaminophen 500 mg tablet 1,000 mg (2 x 500 mg) PO TID #90 04/16/24 tabs aspirin 81 mg tablet,delayed 81 mg PO BID #60 tabs 04/16/24 release celecoxib 200 mg capsule 200 mg PO BID #60 caps 04/16/24 dexamethasone 4 mg tablet 4 mg PO DAILY #2 tabs 04/16/24 gabapentin 300 mg capsule 300 mg PO QHS #14 caps 04/16/24 oxycodone 5 mg tablet 5 mg PO Q4H PRN pain #20 tabs 04/16/24 pantoprazole 40 mg tablet,delayed 40 mg PO DAILY #30 tabs 04/16/24 release Current Visit Medications: Current Medications Generic Name Dose Route Start Last Admin Trade Name Freq PRN Reason Stop Dose Admin Acetaminophen 1,000 mg 04/16/24 06:00 Acetaminophen 500 Mg Tab PO 04/16/24 23:59 PREOP JENS Celecoxib 400 mg 04/16/24 06:00 Celecoxib 200 Mg Cap PO 04/16/24 23:59 PREOP JENS Gabapentin 300 mg 04/16/24 06:00 Gabapentin 300 Mg Cap PO 04/16/24 23:59 PREOP JENS Ringer's Solution 1,000 mls @ 80 mls/hr 04/16/24 06:00 IV 04/16/24 23:59 INFUSION JENS Cefazolin Sodium/Dextrose 2 gm in 50 mls @ 100 mls/hr 04/16/24 06:00 Ancef Duplex IVPB 04/16/24 23:59 PREOP JENS Tranexamic Acid/Sodium Chloride 1,000 mg in 100 mls @ 600 mls/hr 04/16/24 06:00 IVPB 04/16/24 23:59 PREOP JENS IV Miscellaneous Supplies 1 each 04/16/24 06:00 Iv Access IV 04/16/24 23:59 DIRECTED JENS Sodium Chloride 0 ml 04/16/24 06:00 Normal Saline Flush 10 Ml Syr IV 04/16/24 23:59 PRN PRN Sodium Chloride 0 ml 04/16/24 06:00 Normal Saline 10 Ml Vial IJ 04/16/24 23:59 DIRECTED PRN Sterile Water 0 ml 04/16/24 06:00 Water,Injection,Sterile 10 Ml Vial IJ 04/16/24 23:59 DIRECTED PRN PFSH Active Problems Active Problems: Problem Status Onset Code Status post revision of total replacement of right knee Acute 01/08/24 Z96.651 Mechanical loosening of internal right knee prosthetic joint Acute T84.032A Arthritis of left knee Acute M17.12 Entropion of left eyelid Acute H02.006 Mild intermittent asthma Acute J45.20 Medical History Medical History History of ankle fracture Lumbar spinal stenosis Allergic rhinitis Spinal cord compression Obesity Mixed hyperlipidemia Surgical History Surgical History History of bilateral cataract extraction History of total right knee replacement 2016 Tobacco Smoking/Tobacco Use Status: Never Alcohol Alcohol Intake: current Alcohol intake frequency: a few times a month Substance Use Substance use: Never Substance use type: does not use Vital Signs and Lab Results Vital Signs Most Recent Vital Signs in EMR: Temp Pulse Resp BP Pulse Ox 36.6 C 70 16 142/66 H 99 04/16/24 08:08 04/16/24 08:08 04/16/24 08:08 04/16/24 08:08 04/16/24 08:08 Lab Results Blood Type / Crossmatch: No Data to Display Complete Blood Count: White Blood Count 6.67 10^3/uL (4.4-10.8) 03/31/24 09:18 Red Blood Count 4.47 10^6/uL (4.36-5.78) 03/31/24 09:18 Hemoglobin 14.0 g/dL (13.5-17.5) 03/31/24 09:18 Hematocrit 42.2 % (40.0-50.0) 03/31/24 09:18 Platelet Count 249 10^3/uL (130-400) 03/31/24 09:18 Complete Metabolic Panel: Sodium 139 mmol/L (136-145) 03/31/24 09:18 Potassium 4.0 mmol/L (3.5-5.1) 03/31/24 09:18 Chloride 102 mmol/L (98-107) 03/31/24 09:18 Carbon Dioxide 27.3 mmol/L (21.0-32.0) 03/31/24 09:18 BUN 9 mg/dL (7-18) 03/31/24 09:18 Creatinine 0.9 mg/dL (0.70-1.30) 03/31/24 09:18 Est GFR (CKD-EPI 2020) 89.07 (mL/min/1.73m2) 03/31/24 09:18 Calcium 9.3 mg/dL (8.5-10.1) 03/31/24 09:18 Glucose 101 mg/dL (74-106) 03/31/24 09:18 Liver Function Panel: No Data to Display Coagulation Panel: No Data to Display Cardiac Panel: No Data to Display Arterial Blood Gas: No Data to Display Venous Blood Gas: No Data to Display Pancreas Panel: No Data to Display Thyroid Panel: No Data to Display Infectious Disease: No Data to Display Blood Cultures: No Data to Display Toxicology Panel: No Data to Display Anesthesia Assessment and Plan Anesthesia History Personal History: No History of Anesthesia Complications Family History: No Family History of Anesthesia Complications Exercise Tolerance Exercise Tolerance: Metabolic Equivalents>4 Cardiac & Pulmonary Exam Cardiac Exam: Normal S1/S2 Heart Sounds Pulmonary Exam: Clear Bilateral Breath Sounds Implantable Cardiac Device Does patient have a Pacemaker or an ICD?: No Airway Exam Known Difficult Airway: No Mallampati Class: 3 Mouth Opening: Normal (> 3cm) Thyromental Distance: Greater than 3 cm Neck Range of Motion: Limited ROM and History of Cervical Fusion Neck Circumference: Normal Teeth Condition: Normal Dentition and Generalized Poor Dentition ASA Classification ASA Score: ASA 2 Emergency Case?: No NPO Status NPO Status: NPO Clears >2 hours, Solids >8 hours Anesthesia Plan Resuscitation Status: Full Code Anesthesia Technique: General Anesthesia Airway Planned: Endotracheal Tube Pain Management: Surgeon and patient request nerve block Monitors Used: Standard Monitors Preoperative Comments:: 74 yo male for TKA. Sig PMHx: asthma (not in a while), lumbar spine stenosis, never smoker, occ etOH. Previous Anes: - TKR, glide 3, grade 2b. phenyl gtt.
[2024-04-16] VITALS (20 sets, daily range): BP systolic 134–166; BP diastolic 66–89; PULSE 70–90; RESP 13–24; TEMP 36.4–36.8; O2SAT 97–100; BMI 28.0
--- NOTE | 2024-04-16 07:22 | W.PREOPHP ---
Assessment and Plan Assessment and plan (1) Arthritis of left knee: Status: Acute Assessment and plan: Sukhwinder is a 74-year-old male who has known arthritis about his left knee. He is done very well from revision of the right knee after a loose and failed right knee prosthesis. He continues have pain. The injection provided some relief but it was short-lived. He would like to proceed with left knee replacement. I had a long discussion in regards to surgical replacement of the knee. I reviewed the necessary time for rehabilitation following the procedure. Furthermore, I went over in detail the possible complications of knee replacement. These include but are not limited to bleeding, infection, pain, stiffness, weakness, damage to nerves, damage to vessels, damage to muscle and tendon, fracture, leg length inequality, wound healing complications, instability, component loosening, and blood clot. Questions were answered. I again expressed that this is a surgery to improve functional quality of life. After a review of the presented information and risks, Sukhwinder desired to proceed. History of Present Illness Narrative: Sukhwinder is a 74-year-old male who presents today for his left knee. He has known severe arthritis about the left knee. He recently underwent a revision knee replacement in the right side for prosthetic loosening in the setting of a failed knee placement performed some years ago. He continues to do well on the right side although with some stiffness. He is happy with the results in the right side would like to move forward with definitive treatment of his left knee arthritis. We have previously discussed in the office preceding the revision knee replacement. He has had injections and other nonoperative options including physical therapy and anti-inflammatories. He continues have pain with all weightbearing activities about the left side and would like to move forward with left knee replacement. He reports no changes to his health since we saw him last. No chest pain or shortness of breath. No fevers no chills. Review of Systems All systems reviewed & are unremarkable except as noted in HPI and below PFSH All Active Problems Status post revision of total replacement of right knee (Acute 01/08/24) Mechanical loosening of internal right knee prosthetic joint (Acute) Arthritis of left knee (Acute) Entropion of left eyelid (Acute) Mild intermittent asthma (Acute) Medical History History of ankle fracture Lumbar spinal stenosis Allergic rhinitis Spinal cord compression Obesity Mixed hyperlipidemia Surgical History History of bilateral cataract extraction History of total right knee replacement 2016 [place] Social History Smoking/Tobacco Use Status: Never Smoking risk assessment performed?: Yes Alcohol Intake: current Alcohol Intake frequency: a few times a month Drug use: Never Substance use type: does not use Housing: house Do you feel safe at home: Yes Meds Allergies and Home Medications Allergies Allergy/AdvReac Type Severity Reaction Status Date / Time Penicillins AdvReac vomiting Verified 04/16/24 07:36 birch trees Allergy rash Uncoded 04/16/24 07:36 cats Allergy rash Uncoded 04/16/24 07:36 Home Medications ?Medication ?Instructions ?Recorded ?Confirmed ?Type ascorbate calcium (vitamin C) 500 1 g PO DAILY 10/03/23 04/15/24 History mg tablet acetaminophen 500 mg tablet 1,000 mg (2 x 500 mg) PO Q8H PRN 01/09/24 04/15/24 Rx pain #90 tabs celecoxib 200 mg capsule 200 mg PO BID PRN pain #60 caps 03/04/24 04/15/24 Rx Exam Const General: cooperative, healthy appearing, comfortable and no acute distress Resp Effort & Inspection: normal respiratory effort Auscultation: clear to auscultation bilaterally Cardio Rate: regular rate Rhythm: regular rhythm Results Imaging Imaging Studies: Previous x-ray of the left knee shows severe arthritis about the medial compartment primarily with joint space narrowing, subchondral sclerosis and osteophytes
[2024-04-16] MEDS: Gabapentin 300 MG CAP PO (08:13)
[2024-04-16] MEDS: Acetaminophen 500 MG TAB 1000 MG PO (08:13)
[2024-04-16] MEDS: Lactated Ringers 1,000 ML 80 ML IV (08:13)
[2024-04-16] MEDS: Celecoxib 200 MG CAP 400 MG PO (08:13)
--- NOTE | 2024-04-16 09:34 | W.PM.DSUDISC ---
Date of service: 04/16/24 Time of Service: 09:34 Discharge Plan Disposition Patient Disposition: Home Condition: Good Discharge Details Reason For Visit: L TKR Attending Provider: Tre Dodge Primary Care Provider: Kaylee Wall Home Meds and New Rx's Prescriptions: New celecoxib 200 mg capsule 200 mg PO BID Qty: 60 0RF aspirin 81 mg tablet,delayed release (DR/EC) 81 mg PO BID Qty: 60 0RF acetaminophen 500 mg tablet 1,000 mg PO TID Qty: 90 3RF pantoprazole 40 mg tablet,delayed release (DR/EC) 40 mg PO DAILY Qty: 30 0RF dexamethasone 4 mg tablet 4 mg PO DAILY Qty: 2 0RF gabapentin 300 mg capsule 300 mg PO QHS Qty: 14 0RF oxycodone 5 mg tablet 5 mg PO Q4H MDD 6 tabs PRN (Reason: pain) Qty: 20 0RF Continued ascorbate calcium (vitamin C) 500 mg tablet 1 g PO DAILY Discontinued celecoxib 200 mg capsule 200 mg PO BID PRN (Reason: pain) Qty: 60 1RF acetaminophen 500 mg tablet 1,000 mg PO Q8H PRN (Reason: pain) Qty: 90 3RF Discharge Instructions Additional Instructions: Total Knee Discharge Instructions Activity: The most important activity is to walk and to work on gentle motion (both flexion and extension). You should try to take short walks a few times a day. It is important that when resting you work on keeping the knee straight. Avoid putting a pillow behind the knee as this will encourage flexion. Work on range of motion exercises as provided by Physical Therapy. - Start outpatient physical therapy within 2 weeks. - You should wear the SAMANTHA hose on both legs for 2 weeks. You may remove these at night. You may also use any compression sock in place of the SAMANTHA hose. - Utilize [employer] to review exercises, see videos on exercises and obtain basic information pertaining to your surgery and your recovery. Dressing: Remove the Juvenal wrap by 2 days after your surgery and put on the SAMANTHA stocking given to you from the hospital. Keep the surgical dressing (underneath the JUVENAL wrap) in place for at least one week. After the first week it may be removed and replaced with light gauze and tape or nothing. The wound and dressing may get wet after 3 days but avoid soaking the dressing or otherwise it will need to be changed. Many people prefer covering the dressing with cling wrap (saran wrap) to minimize it from getting soaked. If it gets wet, just pat dry. If it starts to peel off then it will need to be changed. Medications: - You should take Tylenol and anti-inflammatory Celebrex as your primary pain control medications. If the Celebrex is too expensive or not covered, please call the office for another alternative (Advil/Ibuprofen or Naproxen/Aleve) - You have been prescribed a stronger pain medication Oxycodone for breakthrough pain, take as needed as prescribed. - You have also been prescribed a stomach acid reduction agent Pantoprozole to help reduce stomach acid and reflux. - You have been prescribed Gabapentin to take at night for restlessness and nerve pain. - You will be taking Aspirin 81mg twice a day for DVT prevention unless instructed otherwise. - You have also been prescribed Decadron to take to control post-operative nausea and pain. You will start this tomorrow. - If you have constipation you should take Colace or Miralax (both [id number]). It takes most people 3-4 days to have a bowel movement. Follow-up: 2 weeks If you have any acute concerns or questions, please do not hesitate to contact the office at [phone]. You may contact Dr. Dodge with any questions after hours through the hospital at [phone] or on his cell phone at [phone]. Referrals: Tre Dodge MD [ [facility] STAFF PHYSICIAN] - Equipment/Supplies: Walker Activity:: Activity as Tolerated Shower/Bathe:: 72 hours Diet:: As Tolerated Discharge Orders Discharge Orders: Discharge Order (Routine); Ordered 04/16/24 Ordered By: Darrin Fuentes DS: Diagnosis Discharge Diagnosis (1) Arthritis of left knee: Status: Acute
--- NOTE | 2024-04-16 09:47 | W.ANESNERVE ---
Nerve Block Single Injection Procedure Date and Time Date Performed: 04/16/24 Procedure Start: 09:47 Location Where Procedure Performed Procedure Location: Day Surgery Unit Reason Performed: Postoperative Analgesia Requesting Provider: Tre Dodge Timeout Performed Timeout Performed: Yes Monitoring Used ECG, Blood Pressure and SpO2 Sterility Sterility: Hand Hygiene, Surgical Cap, Surgical Mask, Sterile Gloves and Chlorhexidine Sedation Given During Procedure Sedation Given (Indicate Dose Given): No Sedation given Patient Mental Status Patient Mental Status: Awake Nerve Block 1st Nerve Block: Laterality: Left Block Type: Adductor Canal Ultrasound Image Saved?: Yes Needle / Catheter Used: 100mm SonoPlex II Local Anesthetic Bolus (Indicate Dose Given): Lidocaine used for local infiltration of skin and Bupivacaine 0.25% Dose:: 10 mL Additives (Indicate Dose Given): None Ultrasound: Sterile probe cover and gel used Nerve Stimulator: Supplement to Ultrasound use and No twitch or parasthesia noted < 0.5 mA Paresthesia: None Procedure Tolerated: No Complications Procedure Outcome: Successful Performed By: Keshawn Ji
[2024-04-16] MEDS: ceFAZolin 2 GM/50 ML BAG IVPB (10:03)
[2024-04-16] MEDS: TRANEXAMIC ACID/SOD. CHL. 1,000 MG/100 ML BAG 600 MG IVPB (10:08)
--- NOTE | 2024-04-16 11:49 | W.ANESPOSTOP ---
Postoperative Evaluation Date, Time and Location Date Performed: 04/16/24 Time Performed: 11:49 Patient Location: PACU Vital Signs Most Recent Imported Vital Signs: Most Recent Vital Signs Temp Pulse Resp BP Pulse Ox 36.6 C 79 21 150/80 H 99 04/16/24 11:46 04/16/24 11:45 04/16/24 11:46 04/16/24 11:45 04/16/24 11:46 Pain Score Most Recent Pain Score: Most Recent Pain Score Pain Level 0 04/16/24 11:46 Assessment Mental Status: Awake (Alert & Oriented to Patient Baseline) Airway and Respiratory Function: Patent airway with normal (patient baseline) respiratory exam Cardiovascular Function: Hemodynamically Stable Hydration Status: Adequately Hydrated Nausea & Vomiting: No Nausea or Vomiting Pain: Pt. Denies Any Pain Peripheral Nerve Block: Regional nerve block not resolved at time of post operative discharge
--- NOTE | 2024-04-16 11:52 | ROE_ITS ---
Date of service: 04/16/24 Time of Service: 10:20 Operative Note Operative Note DATE OF PROCEDURE: 04/16/24 PRE-OP DIAGNOSIS: Left Knee Osteoarthritis POST-OP DIAGNOSIS: same PROCEDURE: Left Total Knee Replacement SURGEON: Tre Dodge SEALER OPERATOR: Trudy Fuentes ANESTHESIA TYPE: General LMA/ETT Refer to Anesthesia Record ESTIMATED BLOOD LOSS: 50 PATHOLOGY: none sent TOURNIQUET TIME: 0 COMPLICATIONS: None Patient was transported to: PACU Patient's condition: stable Implants: 1. Depuy Attune Cementless Cruciate Retaining Femoral Component, Size 7 2. Depuy Attune Cementless Fixed Bearing Tibial Component, Size 6 3. Depuy Attune 7x8 CR/FB Poly 4. Depuy Attune Patellar Component, Size 38 Indications: I have seen Sukhwinder in clinic for symptoms of knee arthritis, confirmed with radiographic findings. He has exhausted nonoperative methods and was having significant limitations in daily function and desired better function and less pain. I discussed the technical details of a knee replacement. I explained the risks of the procedure to include, but not limited to, bleeding, infection, pain, stiffness, fracture, damage to nerves and vessels, damage to muscles and tendons, loosening, need for repeat procedure, blood clot and cardiopulmonary demise. Despite these risks, Sukhwinder elected to proceed. Findings: There was significant signs of arthritis throughout the knee, worse in the medial compartment. Procedure Description: Sukhwinder was greeted in the preoperative holding area where the correct side was identified and marked. The consent was reviewed with the patient and signed. The history and physical was updated. All questions were answered. Preoperative medications were administered: Acetaminophen 1000mg, Celebrex 400mg, and Gabapentin 300mg. An adductor canal block was then administered by the anesthesia team in the PACU. Sukhwinder was taken back to the operating room. A general anesthestic was then administered. The patient was placed into the supine position on the operating room table. A nonsterile tourniquet was placed high onto the leg but only used for cementing. Posts were placed for positioning during the pr ocedure. All bony prominences were well padded. Prophylactic antibiotics in the form of Cefazolin were administered. 1g of Tranxemic Acid was given intravenously within 30 minutes of incision. The left leg was then prepped with Chloraprep and draped in a standard fashion with impervious stockinette. A second prep with Chloraprep was performed prior to application of Iodine impregnated skin protection. A timeout to confirm correct identity, side and site, procedure, allergies, anesthesia, and medical concerns was performed. With the knee in some flexion, a midline incision was made overlying the knee. Full thickness skin flaps were raised once the extensor mechanism was encountered. These were raised medially and laterally. Any bleeding was controlled with electrocautery. Once the extensor mechanism was fully exposed, a medial parapatellar arthrotomy was performed in a flexed position. All bleeding from the arthrotomy and the geniculate arteries was coagulated. A medial subperiosteal peel was performed with electrocautery to the midcoronal plane. Due to the significant varus deformity the entire medial tibial plateau was exposed. The fat pad was removed while keeping the patellar tendon protected. The anterior distal femur synovium was removed for later visualization. The ACL and PCL were resected and the anterior horn of the lateral meniscus was transected. The knee was then flexed with the patella everted. Large osteophytes from the tibia were removed. Large osteophytes from the femur were removed. Using a step drill, and based on preoperative templating, the femoral canal was entered. This was done with a step drill without any difficulty. The intramedullary distal femoral cut guide was inserted, set to a 5 degree valgus cut and 9mm cut thickness. The distal femoral cut guide was then held in position and pinned. With the soft tissues protected, the distal cut was performed. This was passed over a few times to ensure a planar cut. I then turned attention to the tibia. The extramedullary guide was placed onto the leg. The distal aspect was slid medial to adjust for position of center of ankle and stay in line with shaft of the tibia. Approximately 3-5 degrees of posterior slope was kept in the proximal cutting guide. The center of the guide was aligned with the PCL. The stylus was used to assess cut thickness. The medial side, most involved side, was set for a 4mm cut. This was then held in position and pinned into place with 2 additional pins and a cross pin for stability. The medial and lateral collateral ligaments were protected and the cut was performed. With this completed, it was assessed and noted to be of appropriate dimensions. The guide was removed. A spacer block was inserted and the knee was brought into extension. The 7mm spacer block provided full extension, without hyperextension and with stability of both the medial and lateral collateral ligaments was assessed. The pins from the femur and the tibia were then removed. The distal femur was then sized. The anterior stylus was placed onto the lateral ridge of the anterior femur. This indicated a size 7 femur. The external rotation of the guide was adjusted to 0 degrees to match the epicondylar axis, perpendicular to [place]?s line. The 4-in-1 cutting guide was the placed. The posterior medial femur cut was evaluated and appeared of good thickness. The spacer block was inserted underneath the cutting guide and stability was confirmed in 90 degrees of flexion. An amy wing was used to confirm appropriate position of the anterior cut to avoid notching. This cutting guide was ensured to be flush on the cut surface and then pinned into place with headed pins. While protecting the soft tissues, quad tendon, and col lateral ligaments, the anterior and posterior cuts were performed with a saw. The central two pins were removed and the posterior and anterior chamfers were cut next. The notch-cutting guide was placed. This was pinned to lateralize the femoral component as much as possible while keeping it flush on the cut surface. This was then pinned into position. A reciprocating saw was used to make the notch cut. A rasp smoothed the cut surfaces. The medial and lateral menisci were removed. A trial femoral component was then inserted, impacted down to the cut surfaces, and the lug holes were drilled. A provisional trial tibial component was placed and the knee was brought through range of motion. The polyethylene was trialed until there was good flexion and extension with excellent stability to the medial and lateral collaterals. The patella was tracking without thumbs. A size 8mm polyethylene component provided the best range of motion and stability with less than 2mm gapping with medial and lateral stress and full extension without significant hyperextension. The tibial cut surface was fully exposed. The tibia was then sized as a 6. The tibia had been previously marked during trialing to correspond to the center of the tibial component to help with rotation. The trial was aligned to this trudy, approximately rotated to the medial 1/3rd of the tibial tubercle. The trial was pinned into place. The tibia was prepared with a reamer and a keel punch and lug holes. The knee was then brought into extension and the patella was measured as 28mm. Using the patellar clamp and cut guide, this was resected to a flat surface with at least 13mm of thickness remaining. The size 38 patella fit the best. This was oriented and then clamped into position. The lugs were drilled. The trial components were removed. The final components were opened on the back table. The periosteal and capsular tissues, especially posteriorly, around the knee were then systematically injected with a periarticular cocktail consisting of 246mg of Ropivacaine, 0.5mg of Epinephrine, 0.08mg of Clonidine, and 30mg of Ketorolac, diluted to 100cc. On the back table, with the implants opened, the cement was mixed. One batch of high viscosity cement was prepared with vacuum assistance. After the cement was ready a small amount was placed on the cut surface of the patella and the p atellar button was clamped into position and held. While the cement was hardening, the cementless knee components were placed. Starting with the tibial component, the tibia was subluxed anteriorly and the lug holes of the component were lined up. The tibia was then impacted with an impactor and mallet until the tibial component was in contact with the tibia. The final polyethylene component was inserted. Then, the femoral component was inserted. The lug holes were aligned and the component was impacted into position. The knee was irrigated with Surgiphor Betadine solution. This was allowed to sit in the knee for 3 minutes and then it was irrigated out with saline. After the cement had finally cured, approximately 15min, the clamp was removed from the patella and the knee was taken through range of motion. The patella was tracking with a no-thumbs technique. The capsule was then reapproximated with a No. 1 Vicryl at multiple locations. The capsule was finally closed with a No. 2 Stratafix, barbed suture. The second dosing of 1g TXA was started. Deep tissues were then reapproximated with 0 Vicryl and 2-0 Vicryl. The skin was closed with a running 3-0 Monocryl in a subcuticular fashion. This was reinforced with skin glue. A Mepilex silver dressing was applied along with a [id number] PRASAD wrap. A CryoCuff was applied. Sukhwinder was transferred to the hospital bed without difficulty an suffering no apparent complication. Sukhwinder has a good prognosis. Physical therapy will start today and without restrictions, weight-bearing as tolerated. Aspirin 81mg BID will be used for DVT prophylaxis.
--- NOTE | 2024-04-16 12:06 | W.ANESPOSTOP ---
Postoperative Evaluation Date, Time and Location Date Performed: 04/16/24 Time Performed: 12:06 Patient Location: PACU Vital Signs Most Recent Imported Vital Signs: Most Recent Vital Signs Temp Pulse Resp BP Pulse Ox 36.7 C 72 13 154/77 H 98 04/16/24 11:56 04/16/24 11:55 04/16/24 11:55 04/16/24 11:55 04/16/24 11:55 Most Recent Vital Signs Temp Pulse Resp BP Pulse Ox 36.6 C 79 21 150/80 H 99 04/16/24 11:46 04/16/24 11:45 04/16/24 11:46 04/16/24 11:45 04/16/24 11:46 Pain Score Most Recent Pain Score: Most Recent Pain Score Pain Level 2 04/16/24 11:56 Assessment Mental Status: Awake (Alert & Oriented to Patient Baseline) Airway and Respiratory Function: Patent airway with normal (patient baseline) respiratory exam Cardiovascular Function: Hemodynamically Stable Hydration Status: Adequately Hydrated Nausea & Vomiting: No Nausea or Vomiting Pain: Pain is tolerable per patient Peripheral Nerve Block: Patient did not receive a nerve block
--- NOTE | 2024-04-16 14:13 | PT.INIE ---
PT Notes Visit Reasons: L TKR Physical Therapy Day Surgery Initial Evaluation Date: 04/16/2024 Referring Doctor:Dr Dodge PT Orders: PT CONSULT: PT eval assessment for discharge Precautions: activity as tolerated Patient Profile/Admitting Diagnosis: Pt is a 74 yo male presenting s/p elective left TKA 04/16/24 PMHX:R TKA 01/08/24; asthma Social History/Home Situation: lives in one story home with 2 platform steps to enter then 1 step to multiple areas within his home Equipment Owned/DME: [facility] Subjective: Pt reports he had his right knee replaced 6 months ago. Objective: General Observation: alert motivated male reclined with cryocuff in place, pierre able to participate Mental Status: A+Ox4 Pain: 3/10 left knee ROM: Left Lower Extremity: WNL except knee 0-96 degrees Strength: Left Lower Extremity: 3/5 Sensation: intact Bed Mobility/Transfers: Supine to sit independent Sit to stand independent Stand to sit Independent Bed to chair independent with FWW Gait: Amb with FWW 200 feet reciprocal pattern independent Stairs : 2 platform steps with FWW supervision Balance: Static Sitting: Normal Dynamic Sitting: Normal Static Standing: Good with FWW Dynamic Standing: Good - with FWW Special Tests: Mobility Limitations Standardized Measure [facility] AM-PAC 6 clicks Basic Mobility Inpatient Short Form: Raw Score: 23 CMS Score: 11.20% disability Informed Consent/Education: Patient instructed in purpose of PT consult. Packet containing TKA exercise protocol has been given to patient. Education and training on initial set of exercises that can be done at home have been completed with patient. Assessment: Patient presents with clinical signs and symptoms consistent with current/admitting diagnoses that have resulted to mobility limitations, gait instability, generalized weakness, and impairment of motor control as demonstrated by the following impairment level findings: 1. Decreased strength to left knee major muscle groups 2. Impaired standing balance 3. Limitation of joint range of motion in left knee Impairments are contributing to the following functional limitations: 1. Inability to safely ambulate without assistive device 2. Increase completion time for mobility ADL performance 3. Increased fall risk Patient is assessed as a low complexity based on the following: History: 74-year-old male with impairment level findings, functional limitations, and past medical history as indicated above Examination: Demonstrable impairment in strength, balance, and mobility level with underlying impairments and functional limitations as documented above Presentation:stable Decision Making:low Goals: N/A. Plan of Care/Treatment Plan: N/A. DISCHARGE RECOMMENDATIONS: Home with outpatient PT as scheduled TREATMENT CODE/TIME: 51542, [id number]/ ( [id number]) Thank you for the opportunity to participate in the care of this patient. Please sign an return this page within 30 days if you agree with the above POC. Thank you! Physician Signature Date [facility]
== END 2024-04-16 14:02 | disposition home or self-care (01) ==
PROVIDERS: PCP Nurse Practitioner Family; Visit Provider Student in an Organized Health Care Education/Training Program
PROC: (CPT 27447; principal; 2024-04-16 09:45)
DX: M17.12 Unilateral primary osteoarthritis, left knee (principal); E78.2 Mixed hyperlipidemia; E66.9 Obesity, unspecified
CPT/HCPCS: 27447; 76942; 97161; 97530; C1776; J0665; J0690; J1100; J1805; J2371; J2405; J2704

== ENCOUNTER 2024-04-28 15:31 | Outpatient (CLI) | payer MEDICARE, BC, SELFPAY ==
--- NOTE | 2024-04-28 13:15 | DI.RAD_ITS ---
Exam(s) XR KNEE LT 1V XR STANDING ALIGNMENT EXAM: XR STANDING ALIGNMENT CLINICAL HISTORY: 1ST POST OP S/P L TKA. TECHNIQUE: 2D digital imaging was performed. Standing AP views were performed from the pelvis throu gh the ankles. COMPARISON: CR XR KNEE LT 4V AP,LAT,REJI,PAT from 11/19/2023 CR XR KNEE RT 2V AP,LAT from 01/08/2024 CR XR KNEE RT 2V AP,LAT from 01/21/2024 CR XR KNEE LT 1V from 04/28/2024 FINDINGS: BONES: No acute fracture is present. Old distal fibular fracture. No bony destructive lesion is see n. Hardware noted in lower lumbar spine. Leg length discrepancy: No significant overall leg length discrepancy. JOINTS: Knees: Stable appearance of revised right knee prosthesis. A left knee prosthesis has been placed since the prior exam. The ankle joints show degenerative changes medially. Hips: Acetabular spurring. Hip joint spaces are maintained. SOFT TISSUE: left lower leg and ankle edema. IMPRESSION: Bilateral knee prostheses. No significant leg length discrepancy. DATA REPOSITORY: RADIATION DOSE DELIVERED:
== END 2024-04-28 15:32 | disposition home or self-care (01) ==
LOC: DIORS 15:32
PROVIDERS: PCP Nurse Practitioner Family; Visit Provider Student in an Organized Health Care Education/Training Program
DX: Z96.652 Presence of left artificial knee joint (principal); Z47.1 Aftercare following joint replacement surgery
CPT/HCPCS: 73560; 77073

== ENCOUNTER → 2024-05-26 13:08 | Outpatient (BNVA) | payer MEDICARE, BC, SELFPAY | PROVIDERS: PCP Nurse Practitioner Family; Visit Provider Student in an Organized Health Care Education/Training Program | DX: Z47.1 Aftercare following joint replacement surgery (principal); T84.032A Mechanical loosening of internal right knee prosthetic joint, initial encounter; Z96.652 Presence of left artificial knee joint | CPT/HCPCS: 99024 ==

== ENCOUNTER → 2024-07-07 14:16 | Outpatient (BNVA) | payer MEDICARE, BC, SELFPAY | PROVIDERS: PCP Nurse Practitioner Family; Referring Provider Nurse Practitioner Family; Visit Provider Student in an Organized Health Care Education/Training Program | DX: Z47.1 Aftercare following joint replacement surgery (principal); Z96.652 Presence of left artificial knee joint; T84.032A Mechanical loosening of internal right knee prosthetic joint, initial encounter | CPT/HCPCS: 99024 ==

== ENCOUNTER 2025-01-08 14:31 | Outpatient (CLI) | payer MEDICARE, BC, SELFPAY ==
--- NOTE | 2025-01-08 11:05 | DI.RAD_ITS ---
Exam(s) XR KNEE LT 2V AP,LAT EXAM: XR KNEE LT 2V AP,LAT INDICATION: ANNUAL F/U L TKA. COMPARISON: CR XR KNEE RT 2V AP,LAT from 01/08/2024 CR XR KNEE RT 2V AP,LAT from 01/21/2024 CR XR KNEE LT 1V from 04/28/2024 CR XR STANDING ALIGNMENT from 04/28/2024 TECHNIQUE: 2D digital imaging was performed. Two views. FINDINGS: Stable alignment total knee prosthesis. There is a small joint effusion. No abnormal bony lucencie s. DATA REPOSITORY: RADIATION DOSE DELIVERED:
--- NOTE | 2025-01-08 11:15 | DI.RAD_ITS ---
Exam(s) XR KNEE RT 2V AP,LAT EXAM: XR KNEE RT 2V AP,LAT INDICATION: ANNUAL F/U R TKA REVISION. COMPARISON: CR XR KNEE RT 2V AP,LAT from 01/08/2024 CR XR KNEE RT 2V AP,LAT from 01/21/2024 CR XR KNEE LT 2V AP,LAT from 01/08/2025 TECHNIQUE: 2D digital imaging was performed. Two views. FINDINGS: There has been no change in the alignment of the revised total knee prosthesis. There is slight lucency beneath the tibial component at the lateral tibial plateau, not seen previous ly. This could indicate loosening. No lucencies are seen in the femoral component or patellar component. DATA REPOSITORY: RADIATION DOSE DELIVERED:
== END 2025-01-08 14:32 | disposition home or self-care (01) ==
LOC: DIORS 14:31
PROVIDERS: PCP Nurse Practitioner Family; Referring Provider Nurse Practitioner Family; Visit Provider Student in an Organized Health Care Education/Training Program
DX: Z47.1 Aftercare following joint replacement surgery; Z96.653 Presence of artificial knee joint, bilateral
CPT/HCPCS: 99213; 73560

== ENCOUNTER 2025-01-28 11:26 | Outpatient (CLI) | payer MEDICARE, BC, SELFPAY ==
--- NOTE | 2025-01-28 10:15 | DI.RAD_ITS ---
Exam(s) XR SHOULDER RT COMPLETE 2+V EXAM: XR SHOULDER RT COMPLETE 2+V CLINICAL HISTORY: RIGHT SHOULDER PAIN. TECHNIQUE: 2D digital imaging was performed of the right shoulder. Three images were obtained. Gra camilla and axillary views were obtained. COMPARISON: No exams were available for comparison FINDINGS: BONES: No acute fracture is present. No bony destructive lesion is seen. There is an orthopedic ancho r in the humeral head. JOINTS: No dislocation present. Degenerative changes are seen at both the acromioclavicular and gleno humeral joints. SOFT TISSUE: Normal. IMPRESSION: Postsurgical and arthritic changes seen in the right shoulder. No acute abnormality. DATA REPOSITORY: RADIATION DOSE DELIVERED:
== END 2025-01-28 11:27 | disposition home or self-care (01) ==
LOC: DIORS 11:26
PROVIDERS: PCP Nurse Practitioner Family; Referring Provider Nurse Practitioner Family; Visit Provider Student in an Organized Health Care Education/Training Program
DX: M25.511 Pain in right shoulder (principal); M12.811 Other specific arthropathies, not elsewhere classified, right shoulder
CPT/HCPCS: 99214; 73030

== ENCOUNTER 2025-01-28 22:14 | Outpatient (REF) | payer MEDICARE, BC, SELFPAY ==
[2025-01-28 22:42] LABS: ALT 29 U/L (16-63); AST 21 U/L (15-37); Albumin 3.9 g/dL (3.4-5.0); Alkaline Phosphatase 69 U/L (46-116); Anion Gap 6.2 mmol/L (3-11); BUN 16 mg/dL (7-18); Bilirubin, Total 0.5 mg/dL (0.2-1.0); CO2 29.8 mmol/L (21.0-32.0); Calcium 9.1 mg/dL (8.5-10.1); Chloride 102 mmol/L (98-107); Estimated GFR 78.49 (mL/min/1.73m2); Glucose 82 mg/dL (74-106); Potassium 4.2 mmol/L (3.5-5.1); Sodium 138 mmol/L (136-145); Total Protein 7.6 g/dL (6.4-8.2)
[2025-01-29 10:38] LABS: Calculated LDL 165 mg/dL (<100); Cholesterol 240 mg/dL (<200); HDL Cholesterol 52 mg/dL (>or=40); Triglyceride 119 mg/dL (<150)
== END 2025-01-28 22:15 | disposition home or self-care (01) ==
LOC: NCHCN 22:14
PROVIDERS: PCP Nurse Practitioner Family; Visit Provider Nurse Practitioner Family
DX: E78.2 Mixed hyperlipidemia (principal)
CPT/HCPCS: 80053; 80061

== ENCOUNTER 2025-01-29 01:17 | Outpatient (CLI) | payer MEDICARE, BC, SELFPAY ==
--- NOTE | 2025-01-29 13:30 | DI.CT_ITS ---
Exam(s) CT UPPER EXTREMITY RT WO EXAM: CT UPPER EXTREMITY RT WO CLINICAL HISTORY: Rotator cuff arthropathy of rt shoulder, M12.811, SURGICAL PLANNING TECHNIQUE: Imaging Protocol: Axial computed tomography images with coronal and sagittal reformatted images were created and reviewed. CONTRAST MATERIAL: Intravenous: None COMPARISON: No exams were available for comparison FINDINGS: OSSEOUS: There is evidence of prior rotator cuff surgery. There are degenerative cystic changes in the lateral aspect of the humeral head. There is mild superior subluxation of the humeral head in the glenoid fossa. There are moderate degenerative changes in the glenohumeral joint and mild degenerative changes in the AC joint. The no significant osseous lesions. SOFT TISSUES: There does not appear to be a prominent glenohumeral joint effusion there are no no loose calcified intra-articular bodies evident. 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 Also some degenerative change in the AC joint. RADIATION DOSE DELIVERED: 203.66mGy.cm Total DLP DATA REPOSITORY: All CT scans at this facility are submitted to the National Radiology Data Registry (NRDR) Dose Index Registry (DIR) with the [employer] ([employer]). RADIATION OPTIMIZATION: All CT scans at this facility use at least one of these dose optimization techniques: automated exposure control; mA and/or kV adjustment per patient size (includes targeted exams where dose is matched to clinical indication); or iterative reconstruction.
== END 2025-01-29 01:37 ==
LOC: DI 01:17
PROVIDERS: PCP Nurse Practitioner Family; Visit Provider Student in an Organized Health Care Education/Training Program
DX: M12.811 Other specific arthropathies, not elsewhere classified, right shoulder (principal)
CPT/HCPCS: 73200

== ENCOUNTER → 2025-02-10 09:44 | Outpatient (BNVA) | payer MEDICARE, BC, SELFPAY | PROVIDERS: PCP Nurse Practitioner Family; Referring Provider Nurse Practitioner Family; Visit Provider Student in an Organized Health Care Education/Training Program | DX: M12.811 Other specific arthropathies, not elsewhere classified, right shoulder (principal); T84.84XA Pain due to internal orthopedic prosthetic devices, implants and grafts, initial encounter; M75.21 Bicipital tendinitis, right shoulder | CPT/HCPCS: 99214 ==

== ENCOUNTER 2025-02-12 05:34 | Day surgery (SDC) | payer MEDICARE, BC, SELFPAY ==
[2025-02-12] VITALS (29 sets, daily range): BP systolic 84–145; BP diastolic 41–84; PULSE 66–107; RESP 10–20; TEMP 36.1–36.8; O2SAT 95–99; BMI 29.7
--- NOTE | 2025-02-12 06:36 | W.ANESPRE ---
General Info Date of Service Date Performed: 02/12/25 Height: 5 ft 6 in Weight: 83.5 kg Body Mass Index (BMI): 29.7 Surgical Procedure: Operation Date: 02/12/25 08:10 Proposed Procedure Side Surgeon p Shoulder Reverse Total Arthroplasty w/Biceps Tenodesis and Removal of Hardware Right Martir Jackson MD Meds Allergies and Home Medications Allergies Allergy/AdvReac Type Severity Reaction Status Date / Time Penicillins AdvReac vomiting Verified 02/12/25 06:10 birch trees Allergy rash Uncoded 02/12/25 06:10 cats Allergy rash Uncoded 02/12/25 06:10 Home Medication ?Medication ?Instructions ?Recorded ascorbate calcium (vitamin C) 500 1 g PO DAILY 10/03/23 mg tablet acetaminophen 500 mg tablet 1,000 mg (2 x 500 mg) PO TID #90 04/16/24 tabs cholecalciferol (vitamin D3) 10 10 mcg PO DAILY 05/26/24 mcg (400 unit) capsule Current Visit Medications: Current Medications Generic Name Dose Route Start Last Admin Trade Name Kobyq PRN Reason Stop Dose Admin Ringer's Solution 1,000 mls @ 30 mls/hr 02/12/25 06:00 IV 02/12/25 23:59 INFUSION JENS Cefazolin Sodium/Dextrose 2 gm in 50 mls @ 100 mls/hr 02/12/25 06:00 Ancef Duplex IVPB 02/12/25 23:59 PREOP JENS Tranexamic Acid/Sodium Chloride 1,000 mg in 100 mls @ 600 mls/hr 02/12/25 06:00 IVPB 02/12/25 23:59 DIRECTED JENS IV Miscellaneous Supplies 1 each 02/12/25 06:00 Iv Access IV 02/12/25 23:59 DIRECTED JENS Sodium Chloride 0 ml 02/12/25 06:00 Normal Saline Flush 10 Ml Syr IV 02/12/25 23:59 PRN PRN Sodium Chloride 0 ml 02/12/25 06:00 Normal Saline 10 Ml Vial IJ 02/12/25 23:59 DIRECTED PRN Sterile Water 0 ml 02/12/25 06:00 Water,Injection,Sterile 10 Ml Vial IJ 02/12/25 23:59 DIRECTED PRN PFSH Active Problems Active Problems: Problem Status Onset Code Tendonitis of long head of biceps brachii of right shoulder Acute M75.21 Painful orthopaedic hardware Acute T84.84XA Rotator cuff arthropathy of right shoulder Acute M12.811 Arthritis of left knee Acute M17.12 Entropion of left eyelid Acute H02.006 Mild intermittent asthma Acute J45.20 Medical History Medical History History of ankle fracture Lumbar spinal stenosis Allergic rhinitis Spinal cord compression Obesity Mixed hyperlipidemia Surgical History Surgical History Hx of neck surgery History of back surgery lower back Hx of shoulder surgery two on R one on L History of total left knee replacement (04/16/24) 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/08/24) History of bilateral cataract extraction History of total right knee replacement 2016 Tobacco Smoking/Tobacco Use Status: Never Passive smoking exposure: No Alcohol Alcohol Intake: current Alcohol intake frequency: a few times a week Alcohol type: beer Substance Use Substance use: Never Substance use type: does not use Details: alcohol: t-3, 1.5 beer Vital Signs and Lab Results Vital Signs Most Recent Vital Signs in EMR: Most Recent Vital Signs Temp Pulse Resp BP Pulse Ox 36.7 C 76 16 145/84 H 98 02/12/25 06:17 02/12/25 06:17 02/12/25 06:17 02/12/25 06:17 02/12/25 06:17 Lab Results Complete Metabolic Panel: Sodium, (136-145) 138 mmol/L 01/28/25, 16:00 Potassium, (3.5-5.1) 4.2 mmol/L 01/28/25, 16:00 Chloride, (98-107) 102 mmol/L 01/28/25, 16:00 Carbon Dioxide, (21.0-32.0) 29.8 mmol/L 01/28/25, 16:00 BUN, (7-18) 16 mg/dL 01/28/25, 16:00 Creatinine, (0.70-1.30) 1.0 mg/dL 01/28/25, 16:00 Est GFR (CKD-EPI 2020), (mL/min/1.73m2) 78.49 01/28/25, 16:00 Calcium, (8.5-10.1) 9.1 mg/dL 01/28/25, 16:00 Albumin, (3.4-5.0) 3.9 g/dL 01/28/25, 16:00 Glucose, (74-106) 82 mg/dL 01/28/25, 16:00 Liver Function Panel: ALT, (16-63) 29 U/L 01/28/25, 16:00 AST, (15-37) 21 U/L 01/28/25, 16:00 Anesthesia Assessment and Plan Anesthesia History Personal History: No History of Anesthesia Complications Family History: No Family History of Anesthesia Complications Exercise Tolerance Exercise Tolerance: Metabolic Equivalents>4 Pertinent Negatives Pertinent Negatives: No Symptoms of GERD, No Major Cardiovascular Symptoms or Complaints, No Major Pulmonary Symptoms or Complaints and No History of CVA/TIA Cardiac & Pulmonary Exam Cardiac Exam: Normal S1/S2 Heart Sounds Pulmonary Exam: Clear Bilateral Breath Sounds Implantable Cardiac Device Does patient have a Pacemaker or an ICD?: No Airway Exam Known Difficult Airway: No Mallampati Class: 3 Mouth Opening: Normal (> 3cm) Thyromental Distance: Greater than 3 cm Neck Range of Motion: Limited ROM and History of Cervical Fusion Neck Circumference: Normal Teeth Condition: Generalized Poor Dentition and Loose or Chipped Tooth Numbering:  1. chipped ASA Classification ASA Score: ASA 2 Emergency Case?: No NPO Status NPO Status: NPO Clears >2 hours, Solids >8 hours Anesthesia Plan Resuscitation Status: Full Code Anesthesia Technique: General Anesthesia Airway Planned: Endotracheal Tube Pain Management: Surgeon and patient request nerve block Monitors Used: Standard Monitors and SedLine
--- NOTE | 2025-02-12 06:39 | W.ANESNERVE ---
Nerve Block Single Injection Procedure Date and Time Date Performed: 02/12/25 Procedure Start: 07:10 Location Where Procedure Performed Procedure Location: Day Surgery Unit Reason Performed: Postoperative Analgesia Requesting Provider: Martir Jackson Timeout Performed Timeout Performed: Yes Monitoring Used ECG, Blood Pressure, SpO2 and See EMR for corresponding vital signs Sterility Sterility: Hand Hygiene, Surgical Cap, Surgical Mask, Sterile Gloves, Eye Protection and Chlorhexidine Sedation Given During Procedure Sedation Given (Indicate Dose Given): Versed IV Dose:: 1 mg Patient Mental Status Patient Mental Status: Sedate with meaningful communication Nerve Block 1st Nerve Block: Laterality: Right Block Type: Interscalene Ultrasound Image Saved?: Yes Needle / Catheter Used: 80mm SonoPlex II Local Anesthetic Bolus (Indicate Dose Given): Lidocaine used for local infiltration of skin, Injected in 3-5ml increments after negative blood aspiration, Bupivacaine 0.5% Dose:: 10 ml and Exparel Dose:: 5 ml Additives (Indicate Dose Given): None Ultrasound: Sterile probe cover and gel used Nerve Stimulator: Supplement to Ultrasound use and No twitch or parasthesia noted < 0.5 mA Paresthesia: None Procedure Tolerated: No Complications Procedure Outcome: Successful Performed By: Sukhwinder Mcdonnell Supervised By: Lester Cary 2nd Nerve Block: Laterality: Right Block Type: Superficial Cervical Plexus Ultrasound Image Saved?: Yes Needle / Catheter Used: 80mm SonoPlex II Local Anesthetic Bolus (Indicate Dose Given): Lidocaine used for local infiltration of skin, Injected in 3-5ml increments after negative blood aspiration, Bupivacaine 0.5% Dose:: 3 ml and Exparel Dose:: 5 ml Additives (Indicate Dose Given): None Ultrasound: Sterile probe cover and gel used Nerve Stimulator: Supplement to Ultrasound use and No twitch or parasthesia noted < 0.5 mA Paresthesia: None Procedure Tolerated: No Complications Procedure Outcome: Successful Performed By: Sukhwinder Mcdonnell Supervised By: Lester Cary
[2025-02-12] MEDS: Lactated Ringers 1,000 ML 30 ML IV ×2 (06:50→11:41)
--- NOTE | 2025-02-12 07:06 | PDOC.DSDIS_ITS ---
Date of service: 02/12/25 Discharge Plan Disposition Patient Disposition: Home Condition: Stable Discharge Details Attending Provider: Martir Jackson Primary Care Provider: Kaylee Wall Home Meds and New Rx's Prescriptions: New naproxen 250 mg tablet 250 mg PO BID PRN (Reason: Moderate pain) Qty: 30 0RF aspirin 81 mg tablet,delayed release (DR/EC) 81 mg PO DAILY 7 Days Qty: 7 0RF tramadol 50 mg tablet 50 mg PO TID PRNQty: 18 0RF Continued cholecalciferol (vitamin D3) 10 mcg (400 unit) capsule 10 mcg PO DAILY ascorbate calcium (vitamin C) 500 mg tablet 1 g PO DAILY acetaminophen 500 mg tablet 1,000 mg PO TID Qty: 90 3RF Discharge Instructions Additional Instructions: Surgery: Right reverse total shoulder arthroplasty (retentive liner) with biceps tenodesison and hardware removal 02/12/2025 Activity: Do not lift anything heavier than a coffee. You should keep your arm at your side in a relatively neutral position at all times except for gentle range of motion exercises, physical therapy, and essential activities. You should use the sling whenever you are out of the house. At home it is best to remove the sling and rest the arm on a pillow at your side or support the operative side with your other hand. A physical therapy prescription will be sent electronically to start in about 3 weeks. STANDARD Reverse TSA Protocol. Prescriptions: Aspirin 81 mg take 1 daily to prevent a blood clot for 7 days, starting tomorrow morning Naproxen 250 mg take 1 every 12 hours with a meal as needed for moderate pain Tramadol 50 mg take 1 every 8 hours as needed for severe pain You may use [id number] Tylenol (acetaminophen) as needed for mild pain. These pain medications may be taken all at once or in different combinations as needed. Also, recommend Colace (docusate) as a stool softener as surgery and pain medicine cause constipation. You may try pwvu-kak-yahseua diphenhydramine (Benadryl) 25-50 mg nightly as a sleep aid Dressings: Leave dressing in place until follow-up. Keep clean and dry at all times. No showers please. Follow-up: 10-[address] Jackson You may take off the leg compression stockings this evening at home. You may also leave them on a few days longer if you have a history of leg swelling or edema. Please call the office during business hours with any questions or susanne rns. Let us know right away if you develop any redness, drainage, fevers, chest pain, or trouble breathing. Do not drink alcohol or drive for at least 24 hours after anesthesia. Stand Alone Forms: Anesthesia Discharge Inst., Anes.Nerve Block Instructions, Medina Flores (DSU) Referrals: Martir Jackson MD [ [facility] STAFF PHYSICIAN, Orthopaedic Surgical] - 02/24/25 9:30 am Discharge Orders Discharge Orders: Discharge Order (Routine); Ordered 02/12/25 Ordered By: Luis Moise DS: Diagnosis Discharge Diagnosis (1) Rotator cuff arthropathy of right shoulder: Status: Acute (2) Painful orthopaedic hardware: Status: Acute
--- NOTE | 2025-02-12 07:15 | W.PM.OP ---
Operative Note Operative Note PRE-OP DIAGNOSIS: Right: 1. Rotator cuff arthropathy 2. Retained metal proximal humerus suture anchor hardware 3. Long head of the biceps tendinopathy PROCEDURE: Right: 1. Reverse total shoulder arthroplasty, CPT # 46092 2. Open biceps tenodesis, CPT # 53610 3. Removal of deep hardware, CPT#12685 The technical administrative assistant was medically required as this procedure involves retraction, protection of neurovascular structures, and manipulation of multiple instruments and implants at the same time, which cannot be done without a skilled technical administrative assistant. SURGEON: Martir Jackson UNIT SECY: Luis Moise ANESTHESIA TYPE: Local By Surgeon, General LMA/ETT and Primary Nerve Block Refer to Anesthesia Record ESTIMATED BLOOD LOSS: 250 COMPLICATIONS: None Patient was transported to: PACU Patient's condition: stable Implants: Lvmae shoulder system Small modular baseplate with 30 mm central screw 30, 20, and 15 mm peripheral locking screws 40 mm +8 mm glenosphere Medium short length stem +0 mm humeral shell and +4 mm retentive liner Indications: See medical record for details Findings: Profound long head biceps partial tearing and tendinopathy, abnormal thickened scarred and partial tearing supraspinatus infraspinatus, thinning moderately partially torn subscapularis, and deep glenoid vault with degenerative cartilage loss and will labral tearing Procedure Description: In the operating room, general anesthesia was induced. The patient was positioned beachchair on the operating room table. All bony prominences were well-padded. Preoperative antibiotics were administered. The shoulder was prepped and draped in the usual sterile fashion for shoulder arthroplasty. The correct patient, procedure, and side of the procedure were all verified prior to incision. The deltopectoral approach was preinjected with 0.25% bupivacaine containing epinephrine and taken to the anterior shoulder. Care was taken to bluntly dissect the interval between the deltoid and pectoralis major muscles and to identify the cephalic vein within its fat stripe. The vein was preserved and mobilized laterally. Subdeltoid space and conjoined tendon were freed of adhesions. The long head of the biceps tendon was identified just lateral to the lesser tuberosity. The uppermost margin of the pectoralis major tendon was released from the proximal humerus. The long head of the biceps tendon was tenodesed in situ using SutureTape in a jykikj-ny-ecxta fashion securing it superior margin the pectoralis major tendon. The biceps tendon was amputated and followed proximally to identify the rotator interval. A subscapularis tenotomy was performed taking care to release the entire tendon from superior to inferior while bringing the arm gradually into external rotation. Care was taken to avoid the axillary nerve by only working on the bone inferiorly and medially. The supraspinatus infraspinatus were scarred to the abnormal irregular greater tuberosity with the defects from the prior open repair and through adhesions to the deltoid again from the open repair. These were released as was the anterior portion of the supraspinatus to access the joint and achieve mobility. Appropriate coagulation was achieved especially interiorly. The anatomic neck was cut using an oscillating saw with the humeral head bone brought back table in case there was a need for future bone grafting. The permanent metal suture anchors were encountered with the saw. The humeral head cut was completed with osteotome. The suture anchors were then identified and removed entirely with some permanent retained suture material with rongeurs. No signs of chronic or indolent infection were encountered. Attention was then turned to the glenoid and retractors were placed and a circumferential release performed removing soft tissue about the glenoid rim. Care was taken inferiorly to work on bone only between 5 and 7:00 o'clock and bluntly elevate tissues inferiorly. The glenoid was sized and guidepin inserted accounting for patient version and inclination. The guidepin was advanced just through the far cortex ensuring adequate central fixation length. The one step prep glenoid reamer was then used to prepare glenoid according to shoe parts caser specifications. The baseplate was impacted onto the glenoid surface. The central compression screw was placed. The central screw checkerer hand was used to confirm the central screw was fully seated. The locking guide was then used to drill and place appropriately lengthed inferior, anterior, and posterior screws. The iqji-whb-fbslkbwir reamer was used to achieve adequate peripheral reaming. The glenosphere was applied with the paint supervisor and impacted to engage the Aldridge taper. It was then locked with appropriate countersinking of the setscrew. The glenosphere had good fit, appropriate positioning, and no soft tissue or bony impingement. +8 mm lateralized glenosphere was chosen due to the somewhat deep glenoid vault to minimize inferior impingement. The proximal humerus was delivered from the wound with adduction and external rotation. The humerus was sized and pin placed. Reaming and blazing were done over the pin. The stem pin punch was used through the blazer to confirm distal path and complete preparation. The final stem was impacted into place. Trialing was started with a +0 mm shell and liner. The shoulder was reduced and taken through range of motion. It showed excellent stability and appropriate tension on the deltoid and conjoined tendon. Trial shell and liner were removed. The final shell was impacted onto the humeral stem and final liner was clicked into place. Retentive liner was chosen due to deficient subscapularis and supraspinatus rotator cuff. The shoulder was reduced and range of motion, stability, and tension confirmed. The shoulder was copiously irrigated with Betadine and normal saline. Vancomycin powder was distributed deeply about the shoulder and through subcutaneous tissues. The deltopectoral interval was approximated with 2-0 Monocryl burying the cephalic vein. Subcutaneous tissue was irrigated then closed using 2-0 Monocryl in a buried interrupted fashion. Skin was closed using 3-0 Monocryl in a buried subcuticular fashion. Skin glue was applied to the incision. A silver impregnated bandage was placed over the incision. The extremity was placed into a shoulder immobilizer. The patient awoke from anesthesia without complication and was taken to the recovery room in stable condition. Date of Procedure: 02/12/25
[2025-02-12] MEDS: ceFAZolin 2 GM/50 ML BAG IVPB (08:15)
[2025-02-12] MEDS: TRANEXAMIC ACID/SOD. CHL. 1,000 MG/100 ML BAG 600 MG IVPB (08:27)
[2025-02-12] MEDS: Bupivacaine 0.25% Pres-Free W/EPI 30 ML VIAL (08:45)
[2025-02-12] MEDS: Vancomycin 1,000 MG VIAL 1000 MG (08:45)
[2025-02-12] MEDS: ePHEDrine 25 MG/5 ML Syringe IVP ×2 (11:44→11:50)
[2025-02-12] MEDS: ceFAZolin 1 GM/50 ML BAG IVPB (12:12)
--- NOTE | 2025-02-12 12:20 | DI.RAD_ITS ---
Exam(s) XR SHOULDER RT COMPLETE 2+V EXAM: XR SHOULDER RT COMPLETE 2+V INDICATION: Shoulder Arthritis. COMPARISON: CT CT UPPER EXTREMITY RT WO from 01/29/2025 TECHNIQUE: 2D digital imaging was performed. Two views. Portable FINDINGS: A reverse shoulder prosthesis has been placed. The alignment appears satisfactory. There is residual postsurgical air in the soft tissues. DATA REPOSITORY: RADIATION DOSE DELIVERED:
--- NOTE | 2025-02-12 13:59 | W.ANESPOSTOP ---
Postoperative Evaluation Date, Time and Location Date Performed: 02/12/25 Time Performed: 13:59 Patient Location: Day Surgery Unit Vital Signs Most Recent Imported Vital Signs: Most Recent Vital Signs Temp Pulse Resp BP Pulse Ox 36.1 C L 96 H 16 127/71 96 02/12/25 12:55 02/12/25 12:55 02/12/25 12:55 02/12/25 12:55 02/12/25 12:55 Pain Score Most Recent Pain Score: Most Recent Pain Score Pain Level 0 02/12/25 12:55 Assessment Mental Status: Awake (Alert & Oriented to Patient Baseline) Airway and Respiratory Function: Patent airway with normal (patient baseline) respiratory exam Cardiovascular Function: Hemodynamically Stable Hydration Status: Adequately Hydrated Nausea & Vomiting: No Nausea or Vomiting Pain: Pt. Denies Any Pain Peripheral Nerve Block: Regional nerve block not resolved at time of post operative discharge
== END 2025-02-12 14:12 | disposition home or self-care (01) ==
PROVIDERS: PCP Nurse Practitioner Family; Visit Provider Student in an Organized Health Care Education/Training Program
PROC: (CPT 23472; principal; 2025-02-12 08:00)
DX: M12.811 Other specific arthropathies, not elsewhere classified, right shoulder (principal); T84.84XA Pain due to internal orthopedic prosthetic devices, implants and grafts, initial encounter; M75.21 Bicipital tendinitis, right shoulder; G89.18 Other acute postprocedural pain
CPT/HCPCS: 20680; 23472; C1713; 64415; 64450; 73030; J0131; J0665; J0666; J0690; J1100; J1885; J2003; J2250; J2371; J2405; J2704; J3370; J3475

== ENCOUNTER 2025-02-24 10:38 | Outpatient (CLI) | payer MEDICARE, BC, SELFPAY ==
--- NOTE | 2025-02-24 09:15 | DI.RAD_ITS ---
Exam(s) XR SHOULDER RT COMPLETE 2+V EXAM: XR SHOULDER RT COMPLETE 2+V CLINICAL HISTORY: F/U RIGHT RTSA. TECHNIQUE: 2D digital imaging was performed. COMPARISON: CR XR SHOULDER RT COMPLETE 2+V from 02/12/2025 FINDINGS: Two views There is stable position alignment of the components of the recently placed right shoulder reverse prosthesis. No fracture or loosening evident. There is still some gas in the soft tissues lateral to the a chromium.. Surgery was on 02/12/2025. Correlation with with any clinical findings of possible soft tissue infection recommended. There is no evidence of osteomyelitis. IMPRESSION: Satisfactory appearance of the recently placed reverse prosthesis components. There is still some gas in the soft tissues lateral to the a chromium in this patient had surgery on 02/12/2025. Cannot exclude infectious process. Correlate clinically. DATA REPOSITORY: RADIATION DOSE DELIVERED:
== END 2025-02-24 10:39 | disposition home or self-care (01) ==
LOC: DIORS 10:38
PROVIDERS: PCP Nurse Practitioner Family; Visit Provider Student in an Organized Health Care Education/Training Program
DX: Z47.89 Encounter for other orthopedic aftercare (principal); M12.811 Other specific arthropathies, not elsewhere classified, right shoulder
CPT/HCPCS: 99024; 73030

== ENCOUNTER → 2025-04-28 08:01 | Outpatient (BNVA) | payer MEDICARE, BC, SELFPAY | PROVIDERS: PCP Nurse Practitioner Family; Referring Provider Nurse Practitioner Family; Visit Provider Student in an Organized Health Care Education/Training Program | DX: Z47.1 Aftercare following joint replacement surgery (principal); Z96.611 Presence of right artificial shoulder joint | CPT/HCPCS: 99024 ==

== ENCOUNTER 2025-04-29 15:04 | Outpatient (REF) | payer MEDICARE, BC, SELFPAY ==
[2025-04-29 20:39] LABS: Calculated LDL 171 mg/dL (<100); Cholesterol 233 mg/dL (<200); HDL Cholesterol 49 mg/dL (>or=40); Triglyceride 68 mg/dL (<150)
== END 2025-04-29 15:05 | disposition home or self-care (01) ==
LOC: NCHCN 15:04
PROVIDERS: PCP Nurse Practitioner Family; Visit Provider Nurse Practitioner Family
DX: E78.2 Mixed hyperlipidemia (principal)
CPT/HCPCS: 80061

== ENCOUNTER 2025-06-30 13:45 | Outpatient (CLI) | payer MEDICARE, BC, SELFPAY ==
--- NOTE | 2025-06-30 08:15 | DI.RAD_ITS ---
Exam(s) XR SHOULDER RT COMPLETE 2+V EXAM: XR SHOULDER RT COMPLETE 2+V CLINICAL HISTORY: F/U RIGHT RTSA. TECHNIQUE: 2D digital imaging was performed. COMPARISON: CR XR SHOULDER RT COMPLETE 2+V from 02/24/2025 FINDINGS: Two views Satisfactory position alignment of the components of the reverse prosthesis. No fracture or loosening evident. No evidence of osteomyelitis. There is no remaining soft tissue gas. IMPRESSION: Stable satisfactory appearance. DATA REPOSITORY: RADIATION DOSE DELIVERED:
== END 2025-06-30 13:46 | disposition home or self-care (01) ==
LOC: DIORS 13:45
PROVIDERS: PCP Nurse Practitioner Family; Referring Provider Nurse Practitioner Family; Visit Provider Student in an Organized Health Care Education/Training Program
DX: Z47.1 Aftercare following joint replacement surgery (principal); Z96.611 Presence of right artificial shoulder joint; M12.811 Other specific arthropathies, not elsewhere classified, right shoulder
CPT/HCPCS: 99213; 73030

== ENCOUNTER 2025-07-27 13:19 | Outpatient (REF) | payer MEDICARE, BC, SELFPAY ==
[2025-07-27 20:12] LABS: ALT 21 U/L (10-49); AST 19 U/L (<34); Albumin 4.5 g/dL (3.2-5.0); Alkaline Phosphatase 60 U/L (46-116); Anion Gap 6.1 mmol/L (3-11); BUN 12 mg/dL (9-23); Bilirubin, Total 1.00 mg/dL (0.2-1.2); CO2 29.9 mmol/L (20.0-31.0); Calcium 8.9 mg/dL (8.3-10.6); Chloride 103 mmol/L (98-107); Cholesterol 176 mg/dL (<200); Glucose 98 mg/dL (74-106); HDL Cholesterol 53 mg/dL (>40); Potassium 4.4 mmol/L (3.5-5.1); Sodium 139 mmol/L (136-145); Total Protein 7.5 g/dL (5.7-8.2)
== END 2025-07-27 13:20 | disposition home or self-care (01) ==
LOC: NCHCN 13:19
PROVIDERS: PCP Nurse Practitioner Family; Visit Provider Nurse Practitioner Family
DX: E78.2 Mixed hyperlipidemia (principal)
CPT/HCPCS: 80053; 80061